=== PATIENT | female | born 1975 | race Caucasian/White ===

== ENCOUNTER 2017-08-29 21:15 | Emergency (ER) | payer SELFPAY ==
[~2017-08-29] VITALS: Ht 165.1 cm; Wt 122.9 kg
[~2017-08-29 21:15] MED LIST: CEFP500T4 PO; CYCL10TA9 PO; FLUO20CA25 PO; HYDR-3870 PO; HYDR-757 PO; LORA0.5T34 PO; NAPR-243 PO; NITR-65 PO; PANT40TA PO; PHEN200T27 PO
--- OUTSIDE RECORDS SUMMARY | 2017-08-29 21:21 | XMS REPORT ---
Author Author GLORIA Flynn Organization [facility] Address [address] [place] [address] Care Team Providers Care Industrial Property Appraiser Name Role Phone GLORIA Flynn Unavailable PROBLEMS Type Condition ICD9-CM Code [id number] Code Onset Dates Condition Status SNOMED Code Problem Gastro-esophageal reflux disease without esophagitis K21.9 Active 800889250 ALLERGIES Substance Reaction Event Type Date Status Amoxicillin Unknown Drug Allergy Oct, Active ENCOUNTERS Encounter Location Date Diagnosis [facility] [address] [id number] [place] [address] Oct, Gastro-esophageal reflux disease without esophagitis K21.9 IMMUNIZATIONS No Known Immunizations SOCIAL HISTORY Never Assessed REASON FOR VISIT Abdominal pain started about 3 hours ago- feels nausea JStrasserRN PLAN OF CARE Activity Details Follow Up prn Reason: VITAL SIGNS Weight 266.4 lbs 2016-10-24 Temperature 98.1 degrees Fahrenheit 2016-10-24 Heart Rate 100 bpm 2016-10-24 Respiratory Rate 24 2016-10-24 Blood pressure systolic 120 mmHg 2016-10-24 Blood pressure diastolic 90 mmHg 2016-10-24 MEDICATIONS Medication Instructions Dosage Frequency Start Date End Date Duration Status Sucralfate 1 GM Orally QID 1 tablet before meals and at bedtime 6h Oct, Nov, 14 days Active Omeprazole 40 MG Orally Once a day 1 capsule 24h Oct, 30 day(s ) Active RESULTS No Results PROCEDURES No Known procedures INSTRUCTIONS MEDICATIONS ADMINISTERED No Known Medications MEDICAL (GENERAL) HISTORY Type Description Date Surgical History tonsillectomy and adenoidectomy Surgical History cholecystectomy
[2017-08-29 21:38] LABS: BILIRUBIN,URINE NEGATIVE (NEGATIVE); CLARITY,URINE CLEAR; COLOR,URINE YELLOW; GLUCOSE, URINE (UA) NEGATIVE (NEGATIVE); KETONES,URINE NEGATIVE (NEGATIVE); LEUKOCYTE ESTERASE ,URINE 3+ (NEGATIVE); NITRITE,URINE NEGATIVE (NEGATIVE); PH,URINE 6 (5-9); PROTEIN,URINE 1+ (NEGATIVE); UROBILINOGEN,URINE NORMAL (NORMAL)
--- NOTE | 2017-08-29 21:39 | ED Back Pain ---
General Chief Complaint: Back Problems Stated Complaint: BACK PAIN Nursing Triage Note: pt presents to er with complaint of low back pain. states she has had it for a week and a half. went to the dr on thursday and was giving a muscle relaxer and prednisone. Nursing Sepsis Screen: No Definite Risk Source of Information: Patient, Family (sister) Exam Limitations: No Limitations History of Present Illness Date Seen by Provider: August 29, 2017 Time Seen by Provider: 21:30 Initial Comments The patient presents to the ER by private conveyance with a chief complaint she is having some low back pain left worse than right radiating from the left side to the right side. She also has some tingling down her left thigh above the knee. She's not having any numbness, loss of control of her bowel or bladder or hesitancy. She does however have a little bit of urinary incontinence when standing up from the couch and she has some pain in her back she says she'll have a small amount. She's had back pain before but never this lasted this long periods of been going on for about a week and a half staying about the same. She had no inciting event, motor vehicle trauma or other trauma. She has not lost or gained any weight significantly for the past several months. She followed up with her primary care provider and he started her on prednisone and some muscle relaxants which were helping a lot so she backed off from 8 ibuprofen a day to 4 ibuprofen a day. These are 200 mg tablets of ibuprofen. She is not on blood thinners nor does she have diabetes. Allergies and Home Medications Allergies Coded Allergies: Amoxicillin (Unverified Allergy, Mild, 07/06/09) Home Medications Cefprozil 500 Mg Tablet, 500 MG PO DAILY, (Reported) Hydrocodone/Acetaminophen 1 Each Tablet, 1-2 EACH PO Q4H PRN for PAIN Prescribed by: ALEKSANDR CORONADO on 02/27/16 1531 Patient Home Medication List Home Medication List Reviewed: Yes Constitutional: No chills, No diaphoresis EENTM: No ear pain, No vision loss Respiratory: No cough, No short of breath Cardiovascular: No chest pain, No edema Gastrointestinal: No abdominal pain, No constipation, No diarrhea, No nausea Genitourinary: No discharge, No dysuria : No Musculoskeletal: see HPI, back pain; No joint pain Past Xnbfpmp-Joihct-Tzmvqm Hx Patient Social History Alcohol Use: Occasionally Uses Recreational Drug Use: No Smoking Status: Former Smoker Type Used: Cigarettes Recent Foreign Travel: No Contact w/Someone Who Travel: No Recent Infectious Disease Expo: No Recent Hopitalizations: No Immunizations Up To Date Tetanus Booster (TDap): Unknown Past Medical History Surgeries: Yes (EYE SURGERY, EAR TUBES X6, knee scope) Gallbladder, Orthopedic Respiratory: No Cardiac: No Neurological: No Gastrointestinal: Yes (DIARRHEA) Musculoskeletal: No Endocrine: No Cancer: No Psychosocial: No Integumentary: No Blood Disorders: No Physical Exam Vital Signs Vital Signs - First Documented 08/29/17 21:22 Temp 98.1 Pulse 114 Resp 20 B/P (MAP) 153/124 (134) Pulse Ox 96 O2 Delivery Room Air Capillary Refill : Less Than 3 Seconds General Appearance: No Apparent Distress, WD/WN, Anxious HEENT: PERRL/EOMI, Pharynx Normal Neck: Full Range of Motion, Normal Inspection, Non Tender, Supple Cardiovascular: Regular Rate, Rhythm, No Edema, Normal Peripheral Pulses Respiratory: Chest Non Tender, Lungs Clear, Normal Breath Sounds, No Accessory Muscle Use, No Respiratory Distress Peripheral Pulses: 2+ Dorsalis Pedis (R), 2+ Left Dors-Pedis (L) Back: Normal Inspection, CVA Tenderness (L), Vertebral Tenderness (lumbar, brandie L5-S1 facet joint on left) Extremity: Normal Capillary Refill, Normal Range of Motion, No Calf Tenderness , No Pedal Edema Neurologic/Psychiatric: Alert, Oriented x3, No Motor/Sensory Deficits, Normal Mood/Affect Skin: Normal Color, Warm/Dry Progress/Results/Core Measures Results/Orders Lab Results Laboratory Tests Test 08/29/17 21:32 Range/Units Urine Color YELLOW Urine Clarity CLEAR Urine pH 6 5-9 Urine Specific Dawn 1.020 1.016-1.022 Urine Protein 1+ H NEGATIVE Urine Glucose (UA) NEGATIVE NEGATIVE Urine Ketones NEGATIVE NEGATIVE Urine Nitrite NEGATIVE NEGATIVE Urine Bilirubin NEGATIVE NEGATIVE Urine Urobilinogen NORMAL NORMAL MG/DL Urine Leukocyte Esterase 3+ H NEGATIVE Urine RBC (Auto) 1+ H NEGATIVE Urine RBC 0-2 /HPF Urine WBC 25-50 H /HPF Urine Squamous Epithelial Cells 5-10 /HPF Urine Crystals NONE /LPF Urine Bacteria FEW H /HPF Urine Casts NONE /LPF Urine Mucus LARGE H /LPF Urine Culture Indicated YES Urine Test NEGATIVE NEGATIVE My Orders Orders - KAITLIN ROMERO Ketorolac Injection (Toradol Injection) (08/29/17 21:45) Methylprednisolone Acetate Inj (Depo-Med (08/29/17 21:45) Bupivacaine 0.5% Injection (Sensorcaine (08/29/17 21:45) Lidocaine 1% Inj 20 Ml (Xylocaine 1% Inj (08/29/17 21:45) Urinalysis (08/29/17 21:33) Hcg,Qualitative Urine (08/29/17 21:40) Urine Culture (08/29/17 21:32) Ceftriaxone Injection (Rocephin Injectio (08/29/17 22:15) Lidocaine 1% Inj 50 Ml (Xylocaine 1% Inj (08/29/17 22:15) Medications Given in ED Current Medications Medications Dose Ordered Sig/Lj Route Start Time Stop Time Status Last Admin Dose Admin Ketorolac Tromethamine 30 mg ONCE ONCE IM 08/29/17 21:45 08/29/17 21:46 DC 08/29/17 21:40 30 MG Vital Signs/I&O 08/29/17 21:22 Temp 98.1 Pulse 114 Resp 20 B/P (MAP) 153/124 (134) Pulse Ox 96 O2 Delivery Room Air Blood Pressure Mean: 134 Progress Progress Note #1: Time: 21:38 Progress Note If urinalysis and urine are unremarkable then we will have her stop the prednisone injected with 40 mg of Depo-Medrol, 5 cc of half percent Marcaine and 5 cc of 1% lidocaine in her L5-S1 facet joint and encourage her to continue using her muscle relaxants. We will discuss and elementary school counselor rice therapy. We'll also elementary school counselor her on appropriate NSAID use and put her on 2 capsules of Naprosyn twice daily for the next 2 weeks. Imaging is not indicated that she has not sufficient age to worry about metastatic disease yet nor has she been treated with adequate NSAIDs. Progress Note #2: Time: 22:16 Progress Note Patient has urinary tract infection and she may very well also have some back pain and that's true and unrelated to her urinary tract infection but we will be more appropriate to stop the steroids and treat her with antibiotics. Concern with her CVA tenderness that she may also be developing pyelonephritis. We'll put her on strong dose antibiotics. We discussed doing more labs but is not a change the outcome that she stop antibiotics and go home so she is agreed to just take the antibiotics and follow-up with Dr. Gonzalez or return here as needed. Departure Impression Primary Impression: Lumbago of lumbar region with sciatica Additional Impression: UTI (urinary tract infection) Qualified Codes: N30.00 - Acute cystitis without hematuria Disposition: HOME, SELF-CARE Condition: Stable Departure-Patient Inst. Decision time for Depature: 22:17 Referrals: ROB GONZALEZ MD (PCP/Family) Primary Care Physician Patient Instructions: Acute Cystitis (DC) Add. Discharge Instructions: Get some rest, heating pads and continue using the ibuprofen 800 mg every 8 hours or Naprosyn 2 capsules twice a day in addition to Tylenol 1000 mg every 8 hours. You can use Pyridium, AZO for the next couple days to see if that helps with some of the urinary pain symptoms. hook up the antibiotics and start taking them tomorrow one capsule twice a day to completion. Expect results within the first 3-4 days. Make appointment with Dr. Gonzalez to be seen in 2-4 weeks for reevaluation of your back pain persists. If you developed fevers that the tylenol and motrin or nausea vomiting or other worrisome symptoms then return to care sooner. All discharge instructions reviewed with patient and/or family. Voiced understanding. Scripts Cephalexin (Keflex) 500 Mg Capsule 500 MG PO BID for 9 Days, #18 CAP 0 Refills Prov: KAITLIN ROMERO 08/29/17 Work/School Note: Work Release Form Date Seen in the Emergency Department: August 29, 2017 Return to Work: August 31, 2017 Restrictions: No Restrictions Copy Copies To 1: ROB GONZALEZ MD, TITUS J August 29, 2017 21:39
[2017-08-29] MEDS: KETOROLAC 30 MG/ML VIAL IM ONE (21:40)
[2017-08-29] MEDS ORDERED: LIDOCAINE 1% INJ 20 ML 20 ML VIAL INJ ONE (21:45)
[2017-08-29] MEDS ORDERED: methylPREDNISolone 40 MG/ML (DEPO MEDROL) VIAL IA ONE (21:45)
[2017-08-29] MEDS ORDERED: BUPIVACAINE 0.5% 30 ML (SENSORCAINE) VIAL INJ ONE (21:45)
[2017-08-29 21:48] LABS: RBC,URINE 0-2 /HPF
[2017-08-29 21:49] LABS: BACTERIA,URINE FEW /HPF; WBC,URINE 25-50 /HPF
[2017-08-29] MEDS ORDERED: CEPH-507 PO (22:19)
[2017-08-29] MEDS: cefTRIAXone 1 GM (ROCEPHIN) VIAL IM ONE (22:20)
[2017-08-29] MEDS: LIDOCAINE 1% INJ 50 ML (XYLOCAINE) VIAL IJ ONE (22:28)
[2017-08-29 22:40] VITALS: BP 144/98
== END 2017-08-29 22:40 | disposition home or self-care (01) ==
LOC: EDUNIT# 21:15 → ER 21:16
DX: M54.42 Lumbago with sciatica, left side (principal); N39.0 Urinary tract infection, site not specified; Z98.890 Other specified postprocedural states; Z79.52 Long term (current) use of systemic steroids; Z88.1 Allergy status to other antibiotic agents
CPT/HCPCS: 81000; 84703; 87088; 96372; 99284

== ENCOUNTER 2018-07-22 05:42 | Outpatient (CLI) | payer OTHER ==
[~2018-07-22] VITALS: Ht 165.1 cm; Wt 122.0 kg
[~2018-07-22 05:42] MED LIST changes: +CEPH-507 PO; +HYDR-4226 PO; -HYDR-757 PO
== END 2018-07-22 14:18 | disposition home or self-care (01) ==
LOC: PREOP 05:42
PROVIDERS: ATTEND Surgery
DX: Z01.818 Encounter for other preprocedural examination (principal)

== ENCOUNTER 2018-07-27 08:23 | Day surgery (SDC) | payer OTHER ==
[~2018-07-27] VITALS: Ht 165.1 cm; Wt 122.0 kg
[2018-07-27 08:30] VITALS: BP 159/100
[2018-07-27] MEDS ORDERED: LACTATED RINGERS 1,000 ML IV STA (08:30)
[2018-07-27] MEDS ORDERED: LACTATED RINGERS 1,000 ML IV ONE (08:33)
[2018-07-27] MEDS ORDERED: PROPOFOL INJECTION 50 ML IV ONE (08:46)
[2018-07-27] MEDS ORDERED: MIDAZOLAM 2 MG/2 ML (VERSED) VIAL ONE (08:47)
--- NOTE | 2018-07-27 08:49 | Progress Note-Pre Operative ---
Pre-Operative Progress Note H&P Reviewed The H&P was reviewed, patient examined and no changes noted. Date Seen by Provider: Jul 27, 2018 Time Seen by Provider: 08:49 Date H&P Reviewed: Jul 27, 2018 Time H&P Reviewed: 08:49 Pre-Operative Diagnosis: history of polyps HIMA ROCA DO Jul 27, 2018 08:49
[2018-07-27 09:25] VITALS: BP 143/71
--- NOTE | 2018-07-27 09:26 | Progress Note-Post Operative ---
Post-Operative Progess Note Surgeon (s)/Tube Washer (s) Surgeon HIMA ROCA DO Tube Washer: na Pre-Operative Diagnosis history of polyps Post-Operative Diagnosis minimal diverticulosis Procedure & Operative Findings Date of Procedure 07/27/18 Procedure Performed/Findings colonoscopy Anesthesia Type per motion graphics designer Estimated Blood Loss Estimated blood loss (mL): none Specimens/Packing Specimens Removed none HIMA ROCA DO Jul 27, 2018 09:26
--- NOTE | 2018-07-27 09:27 | Discharge Inst-Simple/Standard ---
Discharge Inst-Standard Patient Instructions/Follow Up Plan of Care/Instructions/FU: 2 weeks Contreras Activity as Tolerated: Yes Discharge Diet: Regular Diet (high fiber) HIMA ROCA DO Jul 27, 2018 09:27
[2018-07-27 09:55] VITALS: BP 154/96
[2018-07-27 10:00] VITALS: BP 154/96
--- NOTE | 2018-07-27 13:52 | Anesthesia-General Post-Op ---
MAC Patient Condition Mental Status/LOC: Same as Preop Cardiovascular: Satisfactory Nausea/Vomiting: Absent Respiratory: Satisfactory Pain: Controlled Complications: Absent Post Op Complications Complications None Follow Up Care/Instructions Patient Instructions None needed. Anesthesiology Discharge Order Discharge Order Patient was seen this morning after the procedure and she was doing well, no complaints, stable vital signs, no apparent adverse anesthesia problems. TOMMY YOUSIF DO Jul 27, 2018 13:52
--- NOTE | 2018-07-27 13:52 | OPERATIVE REPORT ---
DATE OF SERVICE: 07/27/2018 PREOPERATIVE DIAGNOSIS: History of colon polyps. POSTOPERATIVE DIAGNOSIS: Diverticulosis. PROCEDURE: Colonoscopy. SURGEON: Hima Chairez DO ANESTHESIA: Per CONE PICKER. ESTIMATED BLOOD LOSS: None. COMPLICATIONS: None. INDICATIONS: The patient is a 43-year-old female with history of colon polyps. She understands risks and benefits of procedure and wished to proceed with procedure. Consent was signed on the chart. DESCRIPTION OF PROCEDURE: The patient was taken to the endoscopy suite, placed in left lower recumbent position. Timeout was performed. Digital rectal exam was performed. There were no palpable polyps, masses or ulcerations. Scope was inserted in the rectum and advanced all the way to the cecum with minimal difficulty. Prep was adequate. Scope was then slowly retracted back. There were no polyps, masses or ulcerations within the cecum, ascending, transverse, descending and sigmoid colon. Throughout the colon, minimal amount of diverticulosis was present. Once in the rectum, scope was retroflexed noting no other pathology. Scope was returned to its normal position, slowly withdrawn until completely removed. The patient tolerated the procedure well without any complications. She was taken to recovery room in stable condition. RECOMMENDATIONS: The patient will need a repeat colonoscopy in 5 years. If she has any change in condition at that time, she should be reevaluated. Job ID: [id number] DocumentID: [id number] Dictated Date: 07/27/2018 09:23:57 Shoe Shanker Date: 07/27/2018 13:51:38 Dictated By: HIMA CHAIREZ DO
== END 2018-07-27 10:05 | disposition home or self-care (01) ==
LOC: SDC 08:23
PROVIDERS: ATTEND Surgery
DX: Z12.11 Encounter for screening for malignant neoplasm of colon (principal); K57.30 Diverticulosis of large intestine without perforation or abscess without bleeding; Z86.010 Personal history of colon polyps; F32.9 Major depressive disorder, single episode, unspecified; F17.210 Nicotine dependence, cigarettes, uncomplicated; E66.01 Morbid (severe) obesity due to excess calories; Z68.41 Body mass index [BMI] 40.0-44.9, adult; Z79.899 Other long term (current) drug therapy
CPT/HCPCS: 84703

== ENCOUNTER 2018-08-16 06:00 | Outpatient (CLI) | payer OTHER ==
[~2018-08-16] VITALS: Ht 165.1 cm; Wt 122.0 kg
== END 2018-08-16 14:13 | disposition home or self-care (01) ==
LOC: PREOP 06:00
PROVIDERS: ATTEND Surgery
DX: Z01.818 Encounter for other preprocedural examination (principal)

== ENCOUNTER 2018-08-19 07:13 | Day surgery (SDC) | payer OTHER ==
[2018-08-19] VITALS (15 sets, daily range): BP systolic 102–143; BP diastolic 59–113
[~2018-08-19] VITALS: Ht 165.1 cm; Wt 122.0 kg
[2018-08-19] MEDS ORDERED: CLINDAMYCIN 600 MG/50 ML IVPB 50 ML IV ONE (07:15)
[2018-08-19] MEDS ORDERED: BUP/EPI 0.5% 1:200,000 (SENSORCAINE) 30 ML VIAL ONE (07:37)
[2018-08-19] MEDS ORDERED: LIDOCAINE 1% INJ 20 ML 20 ML VIAL ONE (07:37)
[2018-08-19] MEDS ORDERED: CATHETER FLUSH 10 ML SYR IV PRN (07:45)
[2018-08-19] MEDS ORDERED: fentaNYL INJECTION 100 MCG/2 ML AMP ONE (07:54)
[2018-08-19] MEDS ORDERED: ONDANSETRON 4 MG/2 ML (SDV) Z0FRAN ONE (07:54)
[2018-08-19] MEDS ORDERED: LIDOCAINE PF 2% 5 ML (XYLOCAINE) VIAL ONE (07:54)
[2018-08-19] MEDS ORDERED: MIDAZOLAM 2 MG/2 ML (VERSED) VIAL ONE (07:54)
[2018-08-19] MEDS ORDERED: proPOfol 200 MG/20 ML (DIPRIVAN) VIAL IV ONE (07:54)
[2018-08-19] MEDS ORDERED: DEXAMETHASONE 10 MG/ML (DECADRON) 1 ML VIAL ONE (07:54)
[2018-08-19] MEDS ORDERED: ROCURONIUM 10 MG/ML 5 ML SYRINGE IV ONE (07:55)
[2018-08-19] MEDS ORDERED: SEVOFLURANE (ULTANE) 15 ML INHAL SOLN ONE ×3 (07:55→10:04)
--- NOTE | 2018-08-19 08:08 | Progress Note-Pre Operative ---
Pre-Operative Progress Note H&P Reviewed The H&P was reviewed, patient examined and no changes noted. Date Seen by Provider: August 19, 2018 Time Seen by Provider: 08:07 Date H&P Reviewed: August 19, 2018 Time H&P Reviewed: 08:08 Pre-Operative Diagnosis: incisional hernia HIMA ROCA DO August 19, 2018 08:08
[2018-08-19 08:24] LABS: BASOPHILS % (AUTO) 1 % (0-10); EOSINOPHILS # (AUTO) 0.2 10^3/uL (0.0-0.3); EOSINOPHILS % (AUTO) 2 % (0-10); HEMATOCRIT 42 % (35-52); HEMOGLOBIN 14.8 G/DL (11.5-16.0); LYMPHOCYTES # (AUTO) 2.2 X 10^3 (1.0-4.0); LYMPHOCYTES % (AUTO) 36 % (12-44); MEAN CORPUSCULAR HEMOGLOBIN 31 PG (25-34); MEAN CORPUSCULAR HGB CONC 35 G/DL (32-36); MEAN CORPUSCULAR VOLUME 88 FL (80-99); MEAN PLATELET VOLUME 10.4 FL (7.4-10.4); MONOCYTES # (AUTO) 0.6 X 10^3 (0.0-1.0); MONOCYTES % (AUTO) 10 % (0-12); NEUTROPHILS # (AUTO) 3.2 X 10^3 (1.8-7.8); NEUTROPHILS % (AUTO) 51 % (42-75); PLATELET COUNT 213 10^3/uL (130-400); RED CELL DISTRIBUTION WIDTH 12.2 % (10.0-14.5); WHITE BLOOD COUNT 6.3 10^3/uL (4.3-11.0)
[2018-08-19] MEDS: LACTATED RINGERS 1,000 ML IV PRN ×2 (08:45→10:13)
[2018-08-19] MEDS ORDERED: GLYCOPYRROLATE 0.2 MG/ML (ROBINUL) 2 ML VIAL ONE (10:16)
[2018-08-19] MEDS ORDERED: NEOSTIGMINE 1 MG/ML 5 ML SYRINGE ONE (10:16)
--- NOTE | 2018-08-19 10:24 | Progress Note-Post Operative ---
Post-Operative Progess Note Surgeon (s)/Manager Van (s) Surgeon HIMA ROCA DO Manager Van: Dr. Stoner Pre-Operative Diagnosis INCISIONAL HERNIA Post-Operative Diagnosis incarcerated incisional hernia repair Procedure & Operative Findings Date of Procedure 08/19/18 Procedure Performed/Findings lap incarcerated incisional hernia repair. Anesthesia Type gen Estimated Blood Loss Estimated blood loss (mL): min Specimens/Packing Specimens Removed na HIMA ROCA DO August 19, 2018 10:24
[2018-08-19] MEDS ORDERED: DOCU-143 PO (10:25)
[2018-08-19] MEDS ORDERED: ACHD5005 PO (10:25)
--- NOTE | 2018-08-19 10:32 | Discharge Inst-Simple/Standard ---
Discharge Inst-Standard Discharge Medications New, Converted or Re-Newed RX: RX on Chart Patient Instructions/Follow Up Plan of Care/Instructions/FU: 2 weeks Chairez Activity as Tolerated: No Discharge Diet: Regular Diet Other Inst to Patient Follow up Appt: Make appointment for 2 weeks. Instructions: No lifting greater than 10 pounds. No strenuous activity. May shower in 24 hours, no tub bath or soaking. Use incentive spirometer at home as directed. No Smoking Skin/Wound Care: You have special glue over incisions it will fall off on its own. Symptoms to Report: Appetite Changes, Extremity Discoloration, Numbness/Tingling, Swelling Increased , Bleeding Excessive, Eyesight Changes, Pain Increased, Urine Color Change, Constipation(Persistent), Fever over 101 degree F, Pain/Pressure in chest, Urinating Difficulty, Cough Up/Vomit Blood, Heart Beat Irreg/Pounding, Pain/ Pressure in jaw, Vaginal Bleeding Increase, Cramps in feet or legs, Lightheadedness, Pain/Pressure in shoulder, Diarrhea(Persistent), Memory Changes Suddenly, Questions/Concerns, Weight gain consecutive days, Dizziness/ Fainting, Nausea/Vomiting, Shortness of Breath, Weight gain over 2 pounds If questions or concerns contact your physician Or seek help at emergency department. HIMA CHAIREZ DO August 19, 2018 10:31
[2018-08-19] MEDS ORDERED: morphine INJ 10 MG/ML 1ML (SYR OR VIAL) ONE (10:40)
[2018-08-19] MEDS ORDERED: HYDROmorphone 2 MG/ML VIAL (DILAUDID) IV ONE (10:45)
[2018-08-19] MEDS ORDERED: ONDANSETRON 4 MG/2 ML (SDV) Z0FRAN IVP PRN (10:45)
[2018-08-19] MEDS ORDERED: morphine INJ 10 MG/ML 1ML (SYR OR VIAL) IVP ONE (10:45)
[2018-08-19] MEDS ORDERED: HYDROcodone/APAP 5 MG/325 MG (LORTAB) TAB PO ONE (12:15)
[2018-08-19] MEDS ORDERED: HYDROcodone/APAP 5 MG/325 MG (LORTAB) TAB ONE (12:19)
[2018-08-19] MEDS ORDERED: ONDANSETRON 4 MG/2 ML (SDV) Z0FRAN IVP ONE (12:45)
--- NOTE | 2018-08-19 13:50 | Anesthesia-General Post-Op ---
General Patient Condition Mental Status/LOC: Same as Preop Cardiovascular: Satisfactory Nausea/Vomiting: Absent Respiratory: Satisfactory Pain: Controlled Complications: Absent Post Op Complications Complications None Follow Up Care/Instructions Patient Instructions None needed. Anesthesia/Patient Condition Patient Condition Patient is doing well, no complaints, stable vital signs, no apparent adverse anesthesia problems. No complications reported per nursing. D/C home per [facility] Criteria: Yes WILLIAM MALHOTRA CRNA August 19, 2018 13:50
--- NOTE | 2018-08-19 20:54 | OPERATIVE REPORT ---
DATE OF SERVICE: 08/19/2018 PREOPERATIVE DIAGNOSIS: Incisional hernia. POSTOPERATIVE DIAGNOSIS: Incarcerated incisional hernia. PROCEDURE: Laparoscopic incarcerated incisional hernia using 4.5-inch Echo Ventralight mesh. SURGEON: Hima Chairez DO THRESHER BROOMCORN: Dr. Stoner, assisted in retraction, dissection and closure. ESTIMATED BLOOD LOSS: Minimal. COMPLICATIONS: None. INDICATIONS: The patient is a 43-year-old female who has incisional hernia at the umbilicus. She understands risks and benefits of procedure and wished to proceed with procedure. Consent was signed in the chart. PROCEDURE: The patient was taken to the operating suite. She was prepped and draped in sterile fashion. Timeout was performed. Alec technique was used to enter the abdomen in left upper quadrant, incarcerated fat of the omentum through the incisional hernia present. Blunt dissection along with a LigaSure dissection was used to remove the incarcerated fat. Once removed, the defect was closed in a [id number] fashion with 0 Vicryl and a Nicholas-Sree. An Echo Ventralight 4.5 inch mesh was then inserted into the abdomen and grasped with a Nicholas-Sree through a stab incision at the hernia defect. A SecureStrap Tacker was used to go circumferentially around the mesh to secure it in place with good overlap present. The balloon was then removed and inner crown was created as well. The Nicholas-Sree was then used to close the 12 mm fascial defect of the left upper quadrant with an 0 Vicryl. The anterior fascia was also closed with 0 Vicryl in a [id number] fashion. All the trocars were removed. After the abdomen was then desufflated the skin was then closed using 4-0 Monocryl in a subcuticular fashion. The abdomen was then washed and dried and Skin Affix was placed over the incisions. The patient tolerated procedure well without any complications. She was taken to recovery room in stable condition. Job ID: [id number] DocumentID: [id number] Dictated Date: 08/19/2018 16:31:35 Giver Date: 08/19/2018 20:53:50 Dictated By: HIMA CHAIREZ DO
== END 2018-08-19 15:10 | disposition home or self-care (01) ==
LOC: SDC 07:13
PROVIDERS: ATTEND Surgery
DX: K43.0 Incisional hernia with obstruction, without gangrene (principal); K21.9 Gastro-esophageal reflux disease without esophagitis; E66.01 Morbid (severe) obesity due to excess calories; Z68.41 Body mass index [BMI] 40.0-44.9, adult; Z87.891 Personal history of nicotine dependence
CPT/HCPCS: 36415; 84703; 85025; 87081; 94664

== ENCOUNTER 2019-05-12 21:46 | Emergency (ER) | payer OTHER ==
[~2019-05-12] VITALS: Ht 165 cm; Wt 125.0 kg
[~2019-05-12 21:46] MED LIST changes: +ACHD5005 PO; +DOCU-143 PO
[2019-05-12 22:11] LABS: BILIRUBIN,URINE NEGATIVE (NEGATIVE); CLARITY,URINE CLEAR; COLOR,URINE YELLOW; GLUCOSE, URINE (UA) NEGATIVE (NEGATIVE); KETONES,URINE TRACE (NEGATIVE); LEUKOCYTE ESTERASE ,URINE NEGATIVE (NEGATIVE); NITRITE,URINE NEGATIVE (NEGATIVE); PH,URINE 5.5 (5-9); PROTEIN,URINE NEGATIVE (NEGATIVE)
[2019-05-12 22:36] LABS: BACTERIA,URINE TRACE /HPF
[2019-05-12] MEDS ORDERED: NS IV 1000 ML 1,000 ML IV SCH (22:36)
[2019-05-12 22:37] LABS: CALCIUM OXALATE CRYSTALS,UR FEW /LPF
[2019-05-12 22:38] LABS: HYALINE CASTS, URINE 0-2 /LPF
[2019-05-12] MEDS ORDERED: RT-ALBUTEROL/IPRATROPIUM 3 ML (DUONEB) VIAL INH ONE (22:45)
[2019-05-12] MEDS ORDERED: KETOROLAC 30 MG/ML VIAL IVP ONE (22:45)
[2019-05-12 22:49] LABS: BASOPHILS # (AUTO) 0.1 10^3/uL (0.0-0.1); BASOPHILS % (AUTO) 1 % (0-10); EOSINOPHILS # (AUTO) 0.3 10^3/uL (0.0-0.3); EOSINOPHILS % (AUTO) 3 % (0-10); HEMATOCRIT 44 % (35-52); HEMOGLOBIN 15.6 G/DL (11.5-16.0); LYMPHOCYTES # (AUTO) 2.9 X 10^3 (1.0-4.0); LYMPHOCYTES % (AUTO) 33 % (12-44); MEAN CORPUSCULAR HEMOGLOBIN 31 PG (25-34); MEAN CORPUSCULAR HGB CONC 35 G/DL (32-36); MEAN CORPUSCULAR VOLUME 87 FL (80-99); MEAN PLATELET VOLUME 10.6 FL (7.4-10.4); MONOCYTES # (AUTO) 0.9 X 10^3 (0.0-1.0); MONOCYTES % (AUTO) 11 % (0-12); NEUTROPHILS # (AUTO) 4.5 X 10^3 (1.8-7.8); NEUTROPHILS % (AUTO) 52 % (42-75); PLATELET COUNT 235 10^3/uL (130-400); RED CELL DISTRIBUTION WIDTH 12.5 % (10.0-14.5); WHITE BLOOD COUNT 8.7 10^3/uL (4.3-11.0)
--- NOTE | 2019-05-12 22:49 | ED Back Pain ---
General Chief Complaint: Back Problems Stated Complaint: FLANK PAIN Source of Information: Patient Exam Limitations: No Limitations History of Present Illness Date Seen by Provider: May 12, 2019 Time Seen by Provider: 22:14 Initial Comments The patient arrives by private conveyance from home with chief complaint of 3 weeks of left back and flank pain radiating around the lower costal margin to her front. There is no rash itching or pustules. She's had no fevers or chills. She has had an occasional nonproductive cough however but no shortness of breath. Her pain is worse on deep expiration. She did have bronchitis a few weeks ago as well as there was influenza in her family members. She quit smoking years ago. She has no heart history, hypertension, hypercholesterolemia, nausea, sweats, diabetes. She does not take medications. She gets only a minor relief from Tylenol or ibuprofen so she does not routinely use it because she says she can stand the pain without it. Tonight however when she was walking she started feeling some popping sensation in her left flank and back. 1 week after the back pain started she went to Dr. Gonzalez and he did a urine dipstick which was negative but he put her on some antibiotics and asked her to follow up. She has pretty much completed the ciprofloxacin with no relief. No history of kidney stones, hematuria or dysuria. Allergies and Home Medications Allergies Coded Allergies: amoxicillin (Unverified Allergy, Mild, 07/06/09) Home Medications Benzonatate 100 Mg Capsule, 100 MG PO Q6H PRN for COUGH Prescribed by: KAITLIN ROMERO on 05/13/19 0035 Docusate Sodium 100 Mg Capsule, 100 MG PO BID Prescribed by: HIMA ROCA on 08/19/18 1025 Hydrocodone Bit/Acetaminophen 1 Tab Tab, 1-2 TAB PO Q6H PRN for PAIN-MODERATE Prescribed by: HIMA ROCA on 08/19/18 1025 Patient Home Medication List Home Medication List Reviewed: Yes Review of Systems Constitutional: No chills, No diaphoresis EENTM: No ear discharge, No ear pain Respiratory: cough; No phlegm, No short of breath, No wheezing Cardiovascular: see HPI; No chest pain, No edema Gastrointestinal: No abdominal pain, No constipation, No diarrhea, No nausea Genitourinary: No discharge, No dysuria Musculoskeletal: see HPI, back pain; No muscle pain, No muscle stiffness Past Zwryyey-Zqrztr-Kpjwzx Hx Patient Social History Alcohol Use: Denies Use Recreational Drug Use: No Smoking Status: Former Smoker Type Used: Cigarettes Former Smoker, Quit: August 17, 2015 Recent Foreign Travel: No Contact w/Someone Who Travel: No Recent Hopitalizations: No Immunizations Up To Date Tetanus Booster (TDap): Unknown Seasonal Allergies Seasonal Allergies: No Past Medical History Surgeries: Yes (EYE SURGERY x2, EAR TUBES X6, knee scope) Adenoidectomy, Gallbladder, Orthopedic, Tonsillectomy Respiratory: No Cardiac: No Neurological: No Genitourinary: No Gastrointestinal: Yes Abdominal Hernia, Polyps, Irritable Bowel Musculoskeletal: No Endocrine: No HEENT: No Cancer: No Psychosocial: No Integumentary: No Blood Disorders: No Physical Exam Vital Signs Vital Signs - First Documented 05/12/19 05/12/19 22:00 23:21 Temp 37.2 Pulse 122 Resp 18 B/P (MAP) 134/110 (118) Pulse Ox 99 O2 Delivery Room Air Capillary Refill : Height, Weight, BMI Height: 5'5.00" Weight: 269lbs. 0.0oz. 122.992815vo; 44.8 BMI Method:Stated General Appearance: WD/WN, Mild Distress HEENT: PERRL/EOMI, TMs Normal, Normal ENT Inspection, Pharynx Normal, Moist Mucous Membranes Neck: Full Range of Motion, Normal Inspection Cardiovascular: Regular Rate, Rhythm, No Edema, Normal Peripheral Pulses, Tach ycardia Respiratory: Lungs Clear, No Accessory Muscle Use, No Respiratory Distress, Decreased Breath Sounds Gastrointestinal: Normal Bowel Sounds, Non Tender, Soft Back: Normal Inspection, No CVA Tenderness, Vertebral Tenderness (and left inferior costal margin reproducible to direct palpation or deep inspiration) Extremity: Normal Capillary Refill, No Pedal Edema Neurologic/Psychiatric: Alert, Oriented x3 Skin: Normal Color, Warm/Dry Progress/Results/Core Measures Results/Orders Lab Results Laboratory Tests Test 05/12/19 22:05 05/12/19 22:40 Range/Units Urine Color YELLOW Urine Clarity CLEAR Urine pH 5.5 5-9 Urine Specific [place] >=1.030 1.016-1.022 Urine Protein NEGATIVE NEGATIVE Urine Glucose (UA) NEGATIVE NEGATIVE Urine Ketones TRACE H NEGATIVE Urine Nitrite NEGATIVE NEGATIVE Urine Bilirubin NEGATIVE NEGATIVE Urine Urobilinogen 0.2 < = 1.0 MG/DL Urine Leukocyte Esterase NEGATIVE NEGATIVE Urine RBC (Auto) NEGATIVE NEGATIVE Urine RBC NONE /HPF Urine WBC 2-5 /HPF Urine Crystals PRESENT H /LPF Urine Calcium Oxalate Crystals FEW H /LPF Urine Bacteria TRACE /HPF Urine Casts PRESENT /LPF Urine Hyaline Casts 0-2 H /LPF Urine Mucus SMALL H /LPF Urine Culture Indicated NO White Blood Count 8.7 4.3-11.0 10^3/uL Red Blood Count 5.08 4.35-5.85 10^6/uL Hemoglobin 15.6 11.5-16.0 G/DL Hematocrit 44 35-52 % Mean Corpuscular Volume 87 80-99 FL Mean Corpuscular Hemoglobin 31 25-34 PG Mean Corpuscular Hemoglobin Concent 35 32-36 G/DL Red Cell Distribution Width 12.5 10.0-14.5 % Platelet Count 235 130-400 10^3/uL Mean Platelet Volume 10.6 H 7.4-10.4 FL Neutrophils (%) (Auto) 52 42-75 % Lymphocytes (%) (Auto) 33 12-44 % Monocytes (%) (Auto) 11 0-12 % Eosinophils (%) (Auto) 3 0-10 % Basophils (%) (Auto) 1 0-10 % Neutrophils # (Auto) 4.5 1.8-7.8 X 10^3 Lymphocytes # (Auto) 2.9 1.0-4.0 X 10^3 Monocytes # (Auto) 0.9 0.0-1.0 X 10^3 Eosinophils # (Auto) 0.3 0.0-0.3 10^3/uL Basophils # (Auto) 0.1 0.0-0.1 10^3/uL Sodium Level 139 135-145 MMOL/L Potassium Level 3.6 3.6-5.0 MMOL/L Chloride Level 107 98-107 MMOL/L Carbon Dioxide Level 20 L 21-32 MMOL/L Anion Gap 12 5-14 MMOL/L Blood Urea Nitrogen 13 7-18 MG/DL Creatinine 0.83 0.60-1.30 MG/DL Estimat Glomerular Filtration Rate > 60 BUN/Creatinine Ratio 16 Glucose Level 143 H 70-105 MG/DL Calcium Level 9.4 8.5-10.1 MG/DL Corrected Calcium 9.5 8.5-10.1 MG/DL Total Bilirubin 1.7 H 0.1-1.0 MG/DL Aspartate Amino Transf (AST/SGOT) 38 H 5-34 U/L Alanine Aminotransferase (ALT/SGPT) 57 H 0-55 U/L Alkaline Phosphatase 89 40-136 U/L Total Protein 6.7 6.4-8.2 GM/DL Albumin 3.9 3.2-4.5 GM/DL My Orders Orders - KAITLIN ROMERO Ua Culture If Indicated (05/12/19 21:53) Cbc With Automated Diff (05/12/19 22:36) Comprehensive Metabolic Panel (05/12/19 22:36) Chest Pa/Lat (2 View) (05/12/19 22:36) Ed Iv/Invasive Line Start (05/12/19 22:36) Ns Iv 1000 Ml (Sodium Chloride 0.9%) (05/12/19 22:36) Ketorolac Injection (Toradol Injection) (05/12/19 22:45) Albuterol/Ipra Inhalation Soln (Duoneb I (05/12/19 22:45) Svn Small Volume Nebulizer (05/12/19 22:36) Medications Given in ED Current Medications Medications Dose Ordered Sig/Lj Route Start Time Stop Time Status Last Admin Dose Admin Albuterol/ Ipratropium 3 ml ONCE ONCE INH 05/12/19 22:45 05/12/19 22:46 DC 05/12/19 23:20 3 ML Ketorolac Tromethamine 30 mg ONCE ONCE IVP 05/12/19 22:45 05/12/19 22:46 DC 05/12/19 23:04 30 MG Vital Signs/I&O 05/12/19 05/12/19 05/13/19 22:00 23:21 01:30 Temp 37.2 37.2 Pulse 122 100 Resp 18 18 B/P (MAP) 134/110 (118) 144/86 (118) Pulse Ox 99 98 O2 Delivery Room Air Room Air Room Air 05/13/19 00:00 Intake Total 1000 ml Balance 1000 ml Progress Progress Note : Time: 22:48 Progress Note No evidence of shingles. The pain is reproducible to direct palpation and has some popping sensation which makes it more likely musculoskeletal. We'll obtain a 2 view chest x-ray to make sure there is no pathologic fractures, pneumonia or bronchitis. We'll give her breathing treatment has rhonchus breath can also be painful. Pleurisy is another possibility. We'll give her some Toradol for her pain check urinalysis and labs. Because she is tachycardic we'll give her some fluids. Unless she has a white count, she is not septic. Diagnostic Imaging Diagonstic Imaging: Xray Plain Films/CT/US/NM/MRI: chest (2v) Comments No acute cardiopulmonary process noted. No acute osseous abnormalities. Reviewed: Reviewed by Me Departure Impression Primary Impression: Costochondritis, acute Disposition: HOME, SELF-CARE Condition: Stable Departure-Patient Inst. Decision time for Depature: 00:33 Referrals: ROB GONZALEZ MD (PCP/Family) Primary Care Physician Patient Instructions: Costochondritis (DC) Add. Discharge Instructions: Naproxen 500 mg twice a day for the next 2 weeks. Follow-up with primary care. Topical creams such as icy hot or Biofreeze. Heating pads. You can also use humidifiers and vapor rubs to help with any congestion or cough. If you have coughing fits which increases your pain then you may use Tessalon Perles 1 capsule every 6 hours as needed. All discharge instructions reviewed with patient and/or family. Voiced understanding. Scripts Benzonatate (Tessalon Perle) 100 Mg Capsule 100 MG PO Q6H PRN for COUGH, #30 CAP 0 Refills Prov: KAITLIN ROMERO 05/13/19 KAITLIN ROMERO May 12, 2019 22:48
[2019-05-12 23:09] LABS: ALANINE AMINOTRANSFERASE 57 U/L (0-55); ALBUMIN 3.9 GM/DL (3.2-4.5); ALKALINE PHOSPHATASE 89 U/L (40-136); BILIRUBIN,TOTAL 1.7 MG/DL (0.1-1.0); BUN/CREATININE RATIO 16; CALCIUM 9.4 MG/DL (8.5-10.1); CARBON DIOXIDE 20 MMOL/L (21-32); CHLORIDE 107 MMOL/L (98-107); CREATININE SERUM 0.83 MG/DL (0.60-1.30); GFR ESTIMATED > 60; GLUCOSE 143 MG/DL (70-105); POTASSIUM 3.6 MMOL/L (3.6-5.0); SODIUM 139 MMOL/L (135-145); TOTAL PROTEIN 6.7 GM/DL (6.4-8.2)
[2019-05-13] MEDS ORDERED: BENZ-13 PO (00:35)
[2019-05-13 01:30] VITALS: BP 144/86
--- NOTE | 2019-05-13 07:16 | Diagnostic Imaging Report ---
EXAM: CHEST PA/LAT (2 VIEW) INDICATION: Back pain. COMPARISON: 02/20/2010. FINDINGS: Normal heart size and pulmonary vascularity. No dense consolidation, pleural effusion or pneumothorax. No acute osseous findings. No significant change. IMPRESSION: No acute cardiopulmonary findings. Dictated by: Dictated on workstation # [id number]
== END 2019-05-13 01:30 | disposition home or self-care (01) ==
LOC: EDUNIT# 21:46 → ER 21:48
DX: M94.0 Chondrocostal junction syndrome [Tietze] (principal); Z88.0 Allergy status to penicillin; Z87.891 Personal history of nicotine dependence
CPT/HCPCS: 36415; 71046; 80053; 81000; 84703; 85025; 94640; 96361; 96374

== ENCOUNTER 2019-08-22 11:35 | Emergency (ER) | payer OTHER ==
[~2019-08-22] VITALS: Ht 165.1 cm; Wt 122.7 kg
[~2019-08-22 11:35] MED LIST changes: +BENZ-13 PO
[2019-08-22] MEDS ORDERED: ASPIRIN 81 MG CHEW (CHILDREN'S ASA) PO ONE (11:45)
--- NOTE | 2019-08-22 11:55 | ED Chest Pain ---
General Stated Complaint: CHEST PAIN History of Present Illness Date Seen by Provider: August 22, 2019 Time Seen by Provider: 11:35 Initial Comments 44 year old female presents with left sided chest pain, present intermittently for the last week. 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 No history of CAD, Diabetes or lung disease, does not follow with a waste hand. No associated nauseas/vomiting, SOA, or diaphoresis. Was able to sleep last night. Nervous about COVID-19, no known exposure or increased risk but works at [employer] and [employer] young family members, concerned she could give it to someone. Pain began today at 0930 and has been continuous. She rates it as /10. No history of mental health problems. 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 NTG SL SCHOOL YEAR NANNY: No Associated Symptoms: denies symptoms Allergies and Home Medications Allergies Coded Allergies: amoxicillin (Unverified Allergy, Mild, 07/06/09) Home Medications Benzonatate 100 Mg Capsule, 100 MG PO Q6H PRN for COUGH Prescribed by: KAITLIN RIVERA on 05/13/19 0035 Docusate Sodium 100 Mg Capsule, 100 MG PO BID Prescribed by: HIMA ROCA on 08/19/18 1025 Hydrocodone Bit/Acetaminophen 1 Tab Tab, 1-2 TAB PO Q6H PRN for PAIN-MODERATE Prescribed by: HIMA ROCA on 08/19/18 1025 Hydroxyzine HCl 25 Mg Tablet, 25 MG PO Q8H Prescribed by: SIDNEY REYNOSO on 08/22/19 1254 Patient Home Medication List Home Medication List Reviewed: Yes Review of Systems Review of Systems Constitutional: no symptoms reported, see HPI Respiratory: No Symptoms Reported, See HPI; Denies Shortness of Air, Denies SOA With Exertion, Denies SOA at Rest Cardiovascular: See HPI, Chest Pain Gastrointestinal: No Symptoms Reported, See HPI Genitourinary: No Symptoms Reported, See HPI Musculoskeletal: no symptoms reported, see HPI Skin: no symptoms reported, see HPI Psychiatric/Neurological: See HPI, Anxiety Past Hbqwyxt-Onshlx-Ognffe Hx Past Med/Social Hx: Reviewed Nursing Past Med/Soc Hx Patient Social History Type Used: Cigarettes Former Smoker, Quit: August 17, 2015 Recent Foreign Travel: No Contact w/Someone Who Travel: No Recent Hopitalizations: No Immunizations Up To Date Tetanus Booster (TDap): Unknown Seasonal Allergies Seasonal Allergies: No Past Medical History Surgeries: Yes (EYE SURGERY x2, EAR TUBES X6, knee scope, HERNIA REPAIR) Adenoidectomy, Gallbladder, Orthopedic, Tonsillectomy Respiratory: No Cardiac: No Neurological: No Genitourinary: No Gastrointestinal: Yes Abdominal Hernia, Polyps, Irritable Bowel Musculoskeletal: No Endocrine: No HEENT: No Cancer: No Psychosocial: No Integumentary: No Blood Disorders: No Physical Exam Vital Signs Vital Signs - First Documented Capillary Refill : Height, Weight, BMI Height: 5'5.00" Weight: 269lbs. 0.0oz. 122.624191kw; 45.00 BMI Method:Stated General Appearance: No Apparent Distress, WD/WN, Obese HEENT: PERRL/EOMI, TMs Normal, Normal ENT Inspection, Pharynx Normal Neck: Full Range of Motion, Normal Inspection, Non Tender, Supple Respiratory: Chest Non Tender, Lungs Clear, Normal Breath Sounds Cardiovascular: Regular Rate, Rhythm, No Edema, No Murmur, Normal Peripheral Pulses Gastrointestinal: Normal Bowel Sounds, Non Tender, Soft Extremity: Normal Capillary Refill, Normal Inspection, Normal Range of Motion, Non Tender, No Calf Tenderness, No Pedal Edema Neurologic/Psychiatric: Alert, Oriented x3, No Motor/Sensory Deficits, Normal Mood/Affect Skin: Normal Color, Warm/Dry Progress/Results/Core Measures Results/Orders Lab Results Laboratory Tests Test 08/22/19 11:50 Range/Units White Blood Count 6.8 4.3-11.0 10^3/uL Red Blood Count 5.30 4.35-5.85 10^6/uL Hemoglobin 16.3 H 11.5-16.0 G/DL Hematocrit 46 35-52 % Mean Corpuscular Volume 86 80-99 FL Mean Corpuscular Hemoglobin 31 25-34 PG Mean Corpuscular Hemoglobin Concent 36 32-36 G/DL Red Cell Distribution Width 12.2 10.0-14.5 % Platelet Count 226 130-400 10^3/uL Mean Platelet Volume 10.4 7.4-10.4 FL Neutrophils (%) (Auto) 61 42-75 % Lymphocytes (%) (Auto) 28 12-44 % Monocytes (%) (Auto) 9 0-12 % Eosinophils (%) (Auto) 2 0-10 % Basophils (%) (Auto) 0 0-10 % Neutrophils # (Auto) 4.1 1.8-7.8 X 10^3 Lymphocytes # (Auto) 1.9 1.0-4.0 X 10^3 Monocytes # (Auto) 0.6 0.0-1.0 X 10^3 Eosinophils # (Auto) 0.1 0.0-0.3 10^3/uL Basophils # (Auto) 0.0 0.0-0.1 10^3/uL Prothrombin Time 12.9 12.2-14.7 SEC INR Comment 0.9 0.8-1.4 Activated Partial Thromboplast Time 34 24-35 SEC Sodium Level 139 135-145 MMOL/L Potassium Level 3.9 3.6-5.0 MMOL/L Chloride Level 107 98-107 MMOL/L Carbon Dioxide Level 20 L 21-32 MMOL/L Anion Gap 12 5-14 MMOL/L Blood Urea Nitrogen 10 7-18 MG/DL Creatinine 0.73 0.60-1.30 MG/DL Estimat Glomerular Filtration Rate > 60 BUN/Creatinine Ratio 14 Glucose Level 117 H 70-105 MG/DL Calcium Level 9.5 8.5-10.1 MG/DL Corrected Calcium 9.6 8.5-10.1 MG/DL Magnesium Level 2.1 1.6-2.4 MG/DL Total Bilirubin 2.4 H 0.1-1.0 MG/DL Aspartate Amino Transf (AST/SGOT) 38 H 5-34 U/L Alanine Aminotransferase (ALT/SGPT) 48 0-55 U/L Alkaline Phosphatase 90 40-136 U/L Myoglobin 52.9 10.0-92.0 NG/ML Troponin I < 0.028 <0.028 NG/ML Total Protein 6.8 6.4-8.2 GM/DL Albumin 3.9 3.2-4.5 GM/DL My Orders Orders - SIDNEY REYNOSO Cbc With Automated Diff (08/22/19 11:39) Magnesium (08/22/19 11:39) Chest 1 View, Ap/Pa Only (08/22/19 11:39) Ekg Tracing (08/22/19 11:39) Comprehensive Metabolic Panel (08/22/19 11:39) Myoglobin Serum (08/22/19 11:39) Protime With Inr (08/22/19 11:39) Partial Thromboplastin Time (08/22/19 11:39) O2 (08/22/19 11:39) Monitor-Rhythm Ecg Trace Only (08/22/19 11:39) Ed Iv/Invasive Line Start (08/22/19 11:39) Aspirin Chewable Tablet (Baby Aspirin Ch (08/22/19 11:45) Troponin I (08/22/19 11:50) Hydroxyzine Cap/Tab (Vistaril) (08/22/19 13:00) Medications Given in ED Current Medications Medications Dose Ordered Sig/Lj Route Start Time Stop Time Status Last Admin Dose Admin Aspirin 324 mg ONCE ONCE PO 08/22/19 11:45 08/22/19 11:46 DC 08/22/19 11:56 324 MG Hydroxyzine Pamoate 25 mg ONCE ONCE PO 08/22/19 13:00 08/22/19 13:01 DC 08/22/19 12:53 25 MG Vital Signs/I&O 08/22/19 08/22/19 08/22/19 11:37 11:37 13:04 Temp 36.4 36.4 Pulse 104 83 Resp 20 18 B/P (MAP) 161/99 (119) 144/100 (119) Pulse Ox 98 98 O2 Delivery Room Air Room Air Room Air Progress Progress Note : Time: 11:35 Progress Note Patient seen and evaluated, will obtain labs, aspirin 324 mg orally, EKG chest x-ray and continue to monitor. Patient denies being anxious enough to need medication at this time, talks calmly and answers all questions appropriately. 1200 No further chest pain. Awaiting lab results. 1240 patient reports symptoms are improving. Will give Hydroxyzine for anxiety. [address] Hernandez, agreeable with plan to d/c. He will see her in clinic upon d/c. 1300 discharge instructions and return precautions reviewed with the patient. All questions answered. Copies of labs and EKG given to her for appointment with Dr. Hernandez. Initial ECG Impression Date: August 22, 2019 Initial ECG Impression Time: 11:40 Initial ECG Rate: 96 Initial ECG Rhythm: Normal Sinus Initial ECG Intervals: Normal Initial ECG Intervals [place] 131, QRSD 96, QT 359, QTc 454. [place] P 36, QRS 39, T 17. Initial ECG Impression: Normal Initial ECG Comparisson: Unchanged (last EKG 2009) Comment Reviewed with Dr. Rivera agreed with interpretation. Diagnostic Imaging Diagonstic Imaging: Xray Plain Films/CT/US/NM/MRI: chest Comments NAME: MACRINA ARZOLA MED REC#: [id number] PT STATUS: REG ER : 1975 PHYSICIAN: SIDNEY REYNOSO ADMIT DATE: 08/22/19/ER Draft Date of Exam:08/22/19 CHEST 1 VIEW, AP/PA ONLY INDICATION: Chest pain. TIME OF EXAM: 12:00 p.m. Correlation is made with prior chest from 05/12/2019. FINDINGS: The heart size is normal. The pulmonary vascularity is unremarkable. The lungs are clear. No infiltrate, effusion or pneumothorax is detected. IMPRESSION: No acute cardiopulmonary process is detected. Dictated on workstation # [id number] Dict: 08/22/19 1208 Trans: 08/22/19 1209 [id number] Interpreted by: JESICA CARVAJAL MD Electronically signed by: Departure Impression Primary Impression: Anxiety Additional Impression: Chest wall pain Disposition: HOME, SELF-CARE Condition: Improved Departure-Patient Inst. Referrals: ROB GONZALEZ MD (PCP/Family) Primary Care Physician DEVANG HERNANDEZ MD Patient Instructions: Chest Pain That Is Not Caused by the Heart (DC), Anxiety, Adult (DC) Add. Discharge Instructions: Take Aspirin 81 mg daily. Go to Cardiology Clinic, you will see Dr. Hernandez today. [facility]. Alternate Tylenol 650 mg and Ibuprofen 600 mg every 4 hours, for pain. Take Hydroxyzine every 8 hours, as needed for anxiety. Keep appt with Dr. Gonzalez for tomorrow. Return to the Emergency Dept for new, urgent health care needs; including chest pain, shortness of breath, persistent nausea/vomiting. Scripts Hydroxyzine HCl (Hydroxyzine HCl) 25 Mg Tablet 25 MG PO Q8H, #20 TAB 0 Refills Prov: SIDNEY REYNOSO 08/22/19 Copy Copies To 1: ROB GONZALEZ MD; DEVANG HERNANDEZ MD, AMY ARNP August 22, 2019 11:55
[2019-08-22 11:58] LABS: BASOPHILS % (AUTO) 0 % (0-10); EOSINOPHILS # (AUTO) 0.1 10^3/uL (0.0-0.3); EOSINOPHILS % (AUTO) 2 % (0-10); HEMATOCRIT 46 % (35-52); HEMOGLOBIN 16.3 G/DL (11.5-16.0); LYMPHOCYTES # (AUTO) 1.9 X 10^3 (1.0-4.0); LYMPHOCYTES % (AUTO) 28 % (12-44); MEAN CORPUSCULAR HEMOGLOBIN 31 PG (25-34); MEAN CORPUSCULAR HGB CONC 36 G/DL (32-36); MEAN CORPUSCULAR VOLUME 86 FL (80-99); MEAN PLATELET VOLUME 10.4 FL (7.4-10.4); MONOCYTES # (AUTO) 0.6 X 10^3 (0.0-1.0); MONOCYTES % (AUTO) 9 % (0-12); NEUTROPHILS # (AUTO) 4.1 X 10^3 (1.8-7.8); NEUTROPHILS % (AUTO) 61 % (42-75); PLATELET COUNT 226 10^3/uL (130-400); RED CELL DISTRIBUTION WIDTH 12.2 % (10.0-14.5); WHITE BLOOD COUNT 6.8 10^3/uL (4.3-11.0)
[2019-08-22 12:09] LABS: ALBUMIN 3.9 GM/DL (3.2-4.5); CHLORIDE 107 MMOL/L (98-107); INR 0.9 (0.8-1.4); POTASSIUM 3.9 MMOL/L (3.6-5.0); PROTHROMBIN TIME PATIENT 12.9 SEC (12.2-14.7); SODIUM 139 MMOL/L (135-145)
[2019-08-22 12:10] LABS: CALCIUM 9.5 MG/DL (8.5-10.1)
--- NOTE | 2019-08-22 12:10 | Diagnostic Imaging Report ---
INDICATION: Chest pain. TIME OF EXAM: 12:00 p.m. Correlation is made with prior chest from 05/12/2019. FINDINGS: The heart size is normal. The pulmonary vascularity is unremarkable. The lungs are clear. No infiltrate, effusion or pneumothorax is detected. IMPRESSION: No acute cardiopulmonary process is detected. Dictated by: Dictated on workstation # [id number]
[2019-08-22 12:11] LABS: GLUCOSE 117 MG/DL (70-105); TOTAL PROTEIN 6.8 GM/DL (6.4-8.2)
[2019-08-22 12:12] LABS: CARBON DIOXIDE 20 MMOL/L (21-32)
[2019-08-22 12:13] LABS: BILIRUBIN,TOTAL 2.4 MG/DL (0.1-1.0)
[2019-08-22 12:15] LABS: ALKALINE PHOSPHATASE 90 U/L (40-136); CREATININE SERUM 0.73 MG/DL (0.60-1.30); GFR ESTIMATED > 60
[2019-08-22 12:16] LABS: BUN/CREATININE RATIO 14
[2019-08-22 12:18] LABS: ALANINE AMINOTRANSFERASE 48 U/L (0-55); MAGNESIUM 2.1 MG/DL (1.6-2.4)
[2019-08-22] MEDS ORDERED: HYDR-700 PO (12:54)
[2019-08-22] MEDS ORDERED: hydrOXYzine (VISTARIL/ATARAX) 25 MG capsule/tablet PO ONE (13:00)
[2019-08-22 13:04] VITALS: BP 144/100
== END 2019-08-22 13:04 | disposition home or self-care (01) ==
LOC: EDUNIT# 11:35 → ER 11:38
DX: F41.9 Anxiety disorder, unspecified (principal); R07.89 Other chest pain; Z88.0 Allergy status to penicillin; Z87.891 Personal history of nicotine dependence
CPT/HCPCS: 71045; 80053; 83735; 83874; 84484; 85025; 85610; 85730; 93041

== ENCOUNTER → 2019-08-25 | Outpatient (CLI) | payer OTHER ==
[~2019-08-25] MED LIST changes: +HYDR-700 PO
== END ==
LOC: CARD 14:17
PROVIDERS: ATTEND Internal Medicine Cardiovascular Disease
DX: Q96.9 Turner's syndrome, unspecified (principal); I10 Essential (primary) hypertension; R07.9 Chest pain, unspecified; F32.9 Major depressive disorder, single episode, unspecified
CPT/HCPCS: 93306

== ENCOUNTER → 2019-08-31 | Outpatient (CLI) | payer OTHER ==
[~2019-08-31] VITALS: Ht 165 cm; Wt 118.0 kg
[~2019-08-31] MED LIST changes: +CATHETER FLUSH 10 ML SYR IV PRN; +REGADENOSON 0.4 MG/5 ML SYR (LEXISCAN) IV ONE
--- NOTE | 2019-08-31 19:04 | STRESS TEST ---
DATE OF SERVICE: 08/31/2019 LEXISCAN MYOVIEW STRESS TEST REPORT REFERRING PHYSICIAN: Dr. Higinio Clemente Baseline heart rate is 103. Baseline blood pressure 162/106. Baseline EKG is sinus rhythm with no ischemic changes. In summary, the patient received 10.66 mCi of technetium-99 Myoview and the resting images were obtained. Then, the patient received 0.4 mg of Lexiscan followed by 32.0 mCi of technetium-99 Myoview. Throughout the test, there were no EKG changes. The resting and stress images were reviewed and compared in the short axis, horizontal long axis, and vertical long axis views. Review of the images showed good radiotracer uptake with no significant ischemia or infarction. SSS is 2, SDS 2, TID value 1.03. On the gated images, the left ventricle appeared to be normal size with normal contractility. Calculated ejection fraction 63%. CONCLUSION: 1. The patient tolerated Lexiscan well. 2. No ischemia or infarction on SPECT images. 3. Normal left ventricular size with normal contractility. Calculated ejection fraction 63%. Job ID: [id number] DocumentID: [id number] Dictated Date: 08/31/2019 14:54:13 Cutting Machine Tender Date: 08/31/2019 19:04:14 Dictated By: DEVANG ENG MD
== END ==
LOC: CARD 08:12
PROVIDERS: ATTEND Internal Medicine Cardiovascular Disease
DX: Q96.9 Turner's syndrome, unspecified (principal); I10 Essential (primary) hypertension; F32.9 Major depressive disorder, single episode, unspecified
CPT/HCPCS: 78452; 93017

== ENCOUNTER → 2020-02-08 | Outpatient (CLI) | payer OTHER ==
[~2020-02-08] MED LIST changes: -CATHETER FLUSH 10 ML SYR IV PRN; -REGADENOSON 0.4 MG/5 ML SYR (LEXISCAN) IV ONE
--- NOTE | 2020-02-08 10:23 | Diagnostic Imaging Report ---
EXAMINATION: US Right Lower Extremity Venous Duplex. TECHNIQUE: Multiple real-time grayscale images were obtained over the right lower extremity in various projections. Additional spectral analysis and color Doppler duplex images were also obtained. HISTORY: Right lower extremity pain and swelling. COMPARISON: None available. FINDINGS: The right common femoral vein, deep femoral vein, superficial femoral vein and popliteal vein are patent with normal porras scale and doppler appearance. There is normal respiratory variation and augmentation. IMPRESSION: 1. No DVT of the right lower extremity. Dictated by: Dictated on workstation # [id number]
== END ==
LOC: RAD 09:40
PROVIDERS: ATTEND Family Medicine
DX: M79.604 Pain in right leg (principal); M79.89 Other specified soft tissue disorders

== ENCOUNTER → 2020-11-19 | Outpatient (CLI) | payer OTHER | LOC: CARD 08:50 | PROVIDERS: ATTEND Internal Medicine Cardiovascular Disease | DX: I10 Essential (primary) hypertension (principal) | CPT/HCPCS: 93306 ==

== ENCOUNTER 2021-05-06 10:16 | Emergency (ER) | payer OTHER ==
[~2021-05-06] VITALS: Ht 165 cm; Wt 127.0 kg
[2021-05-06 11:04] LABS: BASOPHILS # (AUTO) 0.1 10^3/uL (0.0-0.1); BASOPHILS % (AUTO) 1 % (0-10); EOSINOPHILS # (AUTO) 0.1 10^3/uL (0.0-0.3); EOSINOPHILS % (AUTO) 1 % (0-10); HEMATOCRIT 45 % (35-52); HEMOGLOBIN 15.5 g/dL (11.5-16.0); LYMPHOCYTES # (AUTO) 1.7 10^3/uL (1.0-4.0); LYMPHOCYTES % (AUTO) 18 % (12-44); MEAN CORPUSCULAR HEMOGLOBIN 31 pg (25-34); MEAN CORPUSCULAR HGB CONC 34 g/dL (32-36); MEAN CORPUSCULAR VOLUME 90 fL (80-99); MEAN PLATELET VOLUME 11.2 fL (9.0-12.2); MONOCYTES # (AUTO) 0.6 10^3/uL (0.0-1.0); MONOCYTES % (AUTO) 7 % (0-12); NEUTROPHILS % (AUTO) 73 % (42-75); PLATELET COUNT 207 10^3/uL (130-400); WHITE BLOOD COUNT 9.6 10^3/uL (4.3-11.0)
--- NOTE | 2021-05-06 11:04 | ED Neurological Problem ---
General Stated Complaint: HEADACHE/BODYACHES/BACK OF BODY NUMB Source: patient Exam Limitations: no limitations History of Present Illness Date Seen by Provider: May 06, 2021 Time Seen by Provider: 10:59 Initial Comments You would be great at that you want to back okay to self to ER with headache, right-sided tingling from the elbow to the fingertips and from the knee to the toes. The right arm and leg feel heavy and somewhat weaker than usual. She does not notice any obvious motor weakness, only a paresthesia to these locations. Symptoms present for about 10 days. She saw primary care and was diagnosed with high blood pressure started on metoprolol 25 mg. She then saw her marketing manager Dr. Hernandez who increased metoprolol to 50 mg and did carotid Dopplers last week which were normal. She then saw the chiropractor on 05/03/2021 and had manipulation of the neck. She denies noticing any improvement or worsening but states she was told that it was "very out of alignment". Her only medication is metoprolol and baby aspirin. She has a history of Pavon syndrome. Timing/Duration: 1 week Severity: moderate Associated Symptoms: denies symptoms; No slurred speech; tingling in legs/feet Allergies and Home Medications Allergies Coded Allergies: amoxicillin (Unverified Allergy, Mild, 07/06/09) Patient Home Medication List Home Medication List Reviewed: Yes Alprazolam (Xanax) 0.25 Mg Tablet, 1-2 TAB PO BID PRN for ANXIETY Prescribed by: MELODIE DOWNING on 05/06/21 1417 Benzonatate (Tessalon Perle) 100 Mg Capsule, 100 MG PO Q6H PRN for COUGH Prescribed by: KAITLIN ROMERO on 05/13/19 0035 Docusate Sodium (Colace) 100 Mg Capsule, 100 MG PO BID Prescribed by: HIMA ROCA on 08/19/18 1025 Hydrocodone Bit/Acetaminophen (Lortab 5 Mg Tablet) 1 Tab Tab, 1-2 TAB PO Q6H PRN for PAIN-MODERATE Prescribed by: HIMA ROCA on 08/19/18 1025 Hydroxyzine HCl (Hydroxyzine HCl) 25 Mg Tablet, 25 MG PO Q8H Prescribed by: SIDNEY REYNOSO on 08/22/19 1254 Review of Systems Review of Systems Constitutional: see HPI Eyes: No Symptoms Reported Ears, Nose, Mouth, Throat: no symptoms reported Respiratory: no symptoms reported Cardiovascular: no symptoms reported Genitourinary: no symptoms reported Musculoskeletal: no symptoms reported Skin: no symptoms reported Psychiatric/Neurological: See HPI Endocrine: No Symptoms Reported Hematologic/Lymphatic: No Symptoms Reported Past Adlufhp-Mpnnoj-Fggaeb Hx Immunizations Up To Date Tetanus Booster (TDap): Unknown Seasonal Allergies Seasonal Allergies: No Past Medical History Surgeries: Yes (EYE SURGERY x2, EAR TUBES X6, knee scope, HERNIA REPAIR) Adenoidectomy, Gallbladder, Orthopedic, Tonsillectomy Respiratory: No Cardiac: No Neurological: No Genitourinary: No Gastrointestinal: Yes Abdominal Hernia, Polyps, Irritable Bowel Musculoskeletal: No Endocrine: No HEENT: No Cancer: No Psychosocial: No Integumentary: No Blood Disorders: No Physical Exam Vital Signs Vital Signs - First Documented 05/06/21 11:00 Temp 36.7 Pulse 80 Resp 24 B/P (MAP) 159/101 (120) Pulse Ox 97 O2 Delivery Room Air Capillary Refill : Height, Weight, BMI Height: 5'5.00" Weight: 269lbs. 0.0oz. [id number]; 43.34 BMI Method:Stated General Appearance: WD/WN, no apparent distress HEENT: PERRL/EOMI, normal ENT inspection Neck: non-tender, full range of motion Respiratory: no respiratory distress, no accessory muscle use Gastrointestinal: normal bowel sounds, non tender, soft Extremities: normal range of motion, non-tender Neurologic/Psychiatric: alert, normal mood/affect, oriented x 3 Coordination/Gait: normal finger to nose, normal gait Motor/Sensory: no motor deficit Skin: normal color, warm/dry Stroke Onset of Symptoms Date of Onset of Symptoms: Apr 25, 2021 Time of Symptom Onset: 11:03 Onset of Symptoms: Yes Symptoms onset unknown: No NIH Stroke Scale Assessment Select: Initial Level of Consciousness: 0=Alert (0), Level of Consciousness- Questions: 0=Answers both month/age (0), LOC Commands: 0=Performs both tasks (0), Visual Baugh: 0=No visual loss (0), Facial Movement (Facial Paresis): 0=Normal symmetrical mnt (0), Motor Function-Arms Right: 0=No drift (0), Motor Function-Arms Left: 0=No drift (0), Motor Function-Legs Right: 0=No drift (0), Motor Function-Legs Left: 0=No drift (0), Limb Ataxia: 0=Absent (0), Sensory: 1=Mild to Moderate loss (1), Best Language: 0=No aphasia (0), Dysarthria: 0=Normal (0), Extinction & Inattention: 0=No abnormality (0), Total: 1 Stroke Thrombolytic Exclusion Age 18 or Over: Yes Acute intenal hemorrhage: No History of CVA: No Uncontrolled Coagulation Defec: No Intracranial Hemorrhage: No Severe Hypertension: No GI or Bleed: No Subarachnoid Hemorrhage: No Intracranial Neoplasm/Aneurysm: No Oral Anticoagulants: No Surgery or Trauma: No Puncture of Non-Compressible V: No Recent CPR: No Diabetic Hemorrhagic Retinopat: No Organ Biopsy: No Recent Obstetric Delivery: No Glucose: No Significant Hepatic Dysfunctio: No NIH Stoke Scale >22: No Bacterial Endocarditis: No Pericarditis: No Improving Symptoms: No Platelets: No TPA Contraindication: No Progress/Results/Core Measures Results/Orders Lab Results Laboratory Tests Test 05/06/21 10:56 Range/Units White Blood Count 9.6 4.3-11.0 10^3/uL Red Blood Count 5.01 3.80-5.11 10^6/uL Hemoglobin 15.5 11.5-16.0 g/dL Hematocrit 45 35-52 % Mean Corpuscular Volume 90 80-99 fL Mean Corpuscular Hemoglobin 31 25-34 pg Mean Corpuscular Hemoglobin Concent 34 32-36 g/dL Red Cell Distribution Width 11.6 10.0-14.5 % Platelet Count 207 130-400 10^3/uL Mean Platelet Volume 11.2 9.0-12.2 fL Immature Granulocyte % (Auto) 0 % Neutrophils (%) (Auto) 73 42-75 % Lymphocytes (%) (Auto) 18 12-44 % Monocytes (%) (Auto) 7 0-12 % Eosinophils (%) (Auto) 1 0-10 % Basophils (%) (Auto) 1 0-10 % Neutrophils # (Auto) 7.0 1.8-7.8 10^3/uL Lymphocytes # (Auto) 1.7 1.0-4.0 10^3/uL Monocytes # (Auto) 0.6 0.0-1.0 10^3/uL Eosinophils # (Auto) 0.1 0.0-0.3 10^3/uL Basophils # (Auto) 0.1 0.0-0.1 10^3/uL Immature Granulocyte # (Auto) 0.0 0.0-0.1 10^3/uL D-Dimer 0.77 H 0.00-0.49 UG/ML Sodium Level 140 135-145 MMOL/L Potassium Level 4.1 3.6-5.0 MMOL/L Chloride Level 108 H 98-107 MMOL/L Carbon Dioxide Level 20 L 21-32 MMOL/L Anion Gap 12 5-14 MMOL/L Blood Urea Nitrogen 11 7-18 MG/DL Creatinine 0.64 0.60-1.30 MG/DL Estimat Glomerular Filtration Rate 112 BUN/Creatinine Ratio 17 Glucose Level 113 H 70-105 MG/DL Calcium Level 9.3 8.5-10.1 MG/DL Corrected Calcium 9.5 8.5-10.1 MG/DL Total Bilirubin 2.6 H 0.1-1.0 MG/DL Aspartate Amino Transf (AST/SGOT) 27 5-34 U/L Alanine Aminotransferase (ALT/SGPT) 34 0-55 U/L Alkaline Phosphatase 66 40-136 U/L C-Reactive Protein High Sensitivity 0.75 H 0.00-0.50 MG/DL Total Protein 6.6 6.4-8.2 GM/DL Albumin 3.7 3.2-4.5 GM/DL Serum Test, Qualitative NEGATIVE NEGATIVE My Orders Orders - MELODIE DOWNING APRN Cbc With Automated Diff (05/06/21 10:55) Comprehensive Metabolic Panel (05/06/21 10:55) Hs C Reactive Protein (05/06/21 10:55) Ed Iv/Invasive Line Start (05/06/21 10:55) Fibrin Degradation Products (05/06/21 10:55) Hcg,Qualitative Serum (05/06/21 10:55) Ed Iv/Invasive Line Start (05/06/21 10:55) Ct Head/Cervical Spine Wo (05/06/21 11:20) Echo W Doppler/Color Flow (05/06/21 12:35) Ct Angio Head/Neck (05/06/21 12:36) Iohexol Injection (Omnipaque 350 Mg/Ml 1 (05/06/21 13:00) Received Contrast (Hold Metformin- Contr (05/06/21 13:00) Sodium Chloride Flush (Catheter Flush Sy (05/06/21 13:00) Ns (Ivpb) (Sodium Chloride 0.9% Ivpb Bag (05/06/21 13:00) Medications Given in ED Current Medications Medications Dose Ordered Sig/Lj Route Start Time Stop Time Status Last Admin Dose Admin Iohexol 75 ml ONCE ONCE IV 05/06/21 13:00 05/06/21 13:01 DC 05/06/21 13:13 75 ML Sodium Chloride 10 ml NEEDED PRN IV 05/06/21 13:00 05/06/21 13:13 10 ML Sodium Chloride 100 ml ONCE ONCE IV 05/06/21 13:00 05/06/21 13:01 DC 05/06/21 13:13 80 ML Vital Signs/I&O 05/06/21 05/06/21 11:00 14:17 Temp 36.7 Pulse 80 82 Resp 24 18 B/P (MAP) 159/101 (120) 152/112 Pulse Ox 97 99 O2 Delivery Room Air Room Air Departure Communication (Admissions) NAME: MACRINA ARZOLA [facility] REC#: [id number] PT STATUS: REG ER : 1975 PHYSICIAN: MELODIE DOWNING APRN ADMIT DATE: 05/06/21/ER Draft Date of Exam:05/06/21 CT ANGIO HEAD/NECK PROCEDURE: CT angiography of the head and CT angiography of the neck with and without contrast. TECHNIQUE: Contiguous noncontrast images were obtained from the skull base through the vertex. After intravenous contrast administration, helical CT angiography of the neck was performed. Source data was reformatted into 3D MIP projections. Delayed post contrast acquisition was also obtained. Auto Exposure Controls were utilized during the CT exam to meet ALARA standards for radiation dose reduction. INDICATION: Stroke. COMPARISON: CT head without contrast performed earlier today. FINDINGS: Again seen is the region of low attenuation in the left basal ganglia extending into the deep white matter of the left frontal lobe. There are some subtle indeterminate serpiginous enhancement and this location with an incomplete ring. No intracranial hemorrhage is identified on postcontrast imaging. No hydrocephalus or extra-axial fluid collections. CTA demonstrates a left common carotid originating from the innominate. The basilar, bilateral vertebral, common carotid, internal carotid, anterior cerebral, middle cerebral and posterior cerebral arteries demonstrate no high-grade narrowing, aneurysm or dissection. The dural venous sinuses are grossly patent. Dominant right dural venous sinuses. Mucosal thickening and fluid in the right frontal anterior ethmoid sinuses. Mild mucosal thickening in the maxillary sinuses. No acute CT findings in the cervical spine. Visualized paravertebral soft tissues are unremarkable. Lung apices are clear. IMPRESSION: 1. No large vessel occlusion. No high-grade narrowing, aneurysm or dissection involving major arteries in the head and neck. 2. There is some serpiginous incomplete ring enhancement involving the low-attenuation in the left basal ganglia and deep white matter left frontal lobe. This is nonspecific and could be due to hyperemia versus enhancement related to a mass. Again, MRI without and with IV contrast would be beneficial for further evaluation. Dictated on workstation # [id number] Dict: 05/06/21 1337 Trans: 05/06/21 1358 CVB [id number] Interpreted by: SILVIA BAJWA MD Electronically signed by: [id number]-we tried to get her into the MRI scanner but she wouldnt fit. We will have to settle for a CT. given that her symptoms have been present for 10 days if this does represent a CVA it will show up on CT by now. 1237-discussed with Dr. Gonzalez. We will get an echo here in the ER, CT angio head neck and if this is normal since this is a subacute presentation we will discharged home for further work-up outpatient. She will need referral to an open MRI outpatient given that body habitus precludes her from using the one here. 1407-spoke with [facility] at [place], they cannot schedule an MRI until sometime in May. Spoke with [facility] imaging in [place] they require prior authorization first. [facility] 1414-spoke with Dr. Gonzalez. We will have the patient call his office, he will see her and then arrange outpatient MRI with the required prior authorization. Impression Primary Impression: Subacute cva vs mass Disposition: HOME, SELF-CARE Condition: Stable Departure-Patient Inst. Decision time for Depature: 13:50 Referrals: ROB GONZALEZ MD (PCP/Family) Primary Care Physician Patient Instructions: Stroke (DC) Add. Discharge Instructions: 1. The CT brain findings could represent a stroke or a mass within the brain. We need MRI to further evaluate this. Call Dr. Gonzalez's office today or tomorrow to make an appointment to be seen this week. I have spoken with some imaging centers in [place] but they require a prior authorization from your insurance in order to schedule you for the MRI. Prior authorization is something that Dr. Gonzalez's office will help facilitate. In the meantime continue your aspirin. Return to ER for any worsening. Scripts Alprazolam (Xanax) 0.25 Mg Tablet 1-2 TAB PO BID PRN for ANXIETY, #14 TAB Prov: MELODIE DOWNING APRN 05/06/21 Work/School Note: Work Release Form Date Seen in the Emergency Department: May 06, 2021 Return to Work: May 08, 2021 Copy Copies To 1: ROB GONZALEZ MD; DEVANG HERNANDEZ MD, PETER J APRN May 06, 2021 11:04
[2021-05-06 11:17] LABS: ALBUMIN 3.7 GM/DL (3.2-4.5); POTASSIUM 4.1 MMOL/L (3.6-5.0)
[2021-05-06 11:18] LABS: CALCIUM 9.3 MG/DL (8.5-10.1)
[2021-05-06 11:19] LABS: TOTAL PROTEIN 6.6 GM/DL (6.4-8.2)
[2021-05-06 11:21] LABS: BILIRUBIN,TOTAL 2.6 MG/DL (0.1-1.0)
[2021-05-06 11:23] LABS: CREATININE SERUM 0.64 MG/DL (0.60-1.30)
--- NOTE | 2021-05-06 12:30 | Diagnostic Imaging Report ---
PROCEDURE: CT head and CT cervical spine without contrast. TECHNIQUE: Multiple contiguous axial images were obtained through the brain and cervical spine without the use of intravenous contrast. Sagittal and coronal reformations through the cervical spine were then performed. Auto Exposure Controls were utilized during the CT exam to meet ALARA standards for radiation dose reduction. INDICATION: Right-sided tingling x10 days. Headache. COMPARISON: None. FINDINGS: CT HEAD: Indeterminate region of low attenuation in the left basal ganglia extending into the deep white matter of the posterior left frontal lobe. This measures up approximately 2.2 x 2.9 cm. No significant mass effect. No intracranial hemorrhage. No hydrocephalus. Mucosal thickening and fluid in the right frontal sinus and anterior ethmoid sinuses. There is mild mucosal thickening in the maxillary sinuses. Mastoids are clear. Osseous structures are intact. CT CERVICAL SPINE: Normal alignment. Vertebral body heights are preserved. Mild degenerative endplate changes are greatest at C6-C7. No fractures. Uncovertebral joint hypertrophy results in at least moderate neural foraminal narrowing on the right at C2-C3, C4-C5, bilaterally at C5-C6 and on the right at C6-C7. Visualized paravertebral soft tissues are unremarkable. Lung apices are clear. IMPRESSION: 1. Region of low attenuation in the left basal ganglia extending into the deep white matter of the posterior left frontal lobe is suspicious for acute to subacute infarction. Other causes of edema, including inflammatory process such as demyelination or a mass are not excluded. An MRI without and with IV contrast is recommended. 2. Spondylotic changes in the cervical spine result in multilevel high-grade neural foraminal narrowing. No acute osseous findings. Dictated by: Dictated on workstation # [id number]
[2021-05-06] MEDS ORDERED: IOHEXOL 350 MG/ML 100 ML (OMNIPAQUE 350) VIAL IV ONE (13:00)
[2021-05-06] MEDS ORDERED: HOLD METFORMIN - RECEIVED CONTRAST 20 ML VIAL IV SCH (13:00)
[2021-05-06] MEDS ORDERED: NS 100 ML (IVPB) BAG IV ONE (13:00)
[2021-05-06] MEDS ORDERED: CATHETER FLUSH 10 ML SYR IV PRN (13:00)
--- NOTE | 2021-05-06 13:58 | Diagnostic Imaging Report ---
PROCEDURE: CT angiography of the head and CT angiography of the neck with and without contrast. TECHNIQUE: Contiguous noncontrast images were obtained from the skull base through the vertex. After intravenous contrast administration, helical CT angiography of the neck was performed. Source data was reformatted into 3D MIP projections. Delayed post contrast acquisition was also obtained. Auto Exposure Controls were utilized during the CT exam to meet ALARA standards for radiation dose reduction. INDICATION: Stroke. COMPARISON: CT head without contrast performed earlier today. FINDINGS: Again seen is the region of low attenuation in the left basal ganglia extending into the deep white matter of the left frontal lobe. There are some subtle indeterminate serpiginous enhancement and this location with an incomplete ring. No intracranial hemorrhage is identified on postcontrast imaging. No hydrocephalus or extra-axial fluid collections. CTA demonstrates a left common carotid originating from the innominate. The basilar, bilateral vertebral, common carotid, internal carotid, anterior cerebral, middle cerebral and posterior cerebral arteries demonstrate no high-grade narrowing, aneurysm or dissection. The dural venous sinuses are grossly patent. Dominant right dural venous sinuses. Mucosal thickening and fluid in the right frontal anterior ethmoid sinuses. Mild mucosal thickening in the maxillary sinuses. No acute CT findings in the cervical spine. Visualized paravertebral soft tissues are unremarkable. Lung apices are clear. IMPRESSION: 1. No large vessel occlusion. No high-grade narrowing, aneurysm or dissection involving major arteries in the head and neck. 2. There is some serpiginous incomplete ring enhancement involving the low-attenuation in the left basal ganglia and deep white matter left frontal lobe. This is nonspecific and could be due to hyperemia versus enhancement related to a mass. Again, MRI without and with IV contrast would be beneficial for further evaluation. Dictated by: Dictated on workstation # [id number]
[2021-05-06] MEDS ORDERED: ALPR0.25 PO (14:17)
[2021-05-06 14:33] VITALS: BP 157/93
== END 2021-05-06 14:31 | disposition home or self-care (01) ==
LOC: EDUNIT# 10:16 → ER 10:17
DX: I63.9 Cerebral infarction, unspecified (principal)
CPT/HCPCS: 36415; 70450; 70496; 70498; 72125; 80053; 84703; 85025; 85379; 86141; 93306

== ENCOUNTER 2021-05-11 13:33 | Emergency (ER) | payer OTHER ==
[~2021-05-11] VITALS: Ht 165 cm; Wt 130.0 kg
[~2021-05-11 13:33] MED LIST changes: +ALPR0.25 PO
--- NOTE | 2021-05-11 15:30 | ED Neurological Problem ---
General Chief Complaint: Neurological Problems Stated Complaint: R SIDE WEAKNESS Nursing Triage Note: PT AMB TO ED BY POV WITH C/O R SIDED NUMBNESS/WEAKNESS X 2 WKS. REPORTS R LEG FEELS "HEAVY" AND "TINGLING" ON R SIDE OF BODY. DENIES DIZZINESS, CA, VISION CHANGES, SOB, CP. A&O X 4 STRENGTH EQUAL BILAT. REPORTS SHE IS WAITING FOR MRI. Source: patient, old records Exam Limitations: no limitations History of Present Illness Date Seen by Provider: May 11, 2021 Time Seen by Provider: 13:55 Initial Comments This 45-year-old woman presents to the emergency room with primary complaint of paresthesias in her right extremities. She was seated for the same symptoms on May 06. She states the symptoms seem a bit worse in the right leg now feels "heavy". There is no measurable weakness on exam but she feels a sensation of weakness. Gait is not disrupted. She had a thorough work-up on May 06 and MRI was attempted to further evaluate a brain lesion seen on CT angiogram. Her shoulder with would not allow usage of MRI machine at this facility. She is awaiting scheduling of an outpatient MRI. No bowel or bladder dysfunction was described. She has mild intermittent headache that has not worsened. Allergies and Home Medications Allergies Coded Allergies: amoxicillin (Unverified Allergy, Mild, 07/06/09) Patient Home Medication List Home Medication List Reviewed: Yes Alprazolam (Xanax) 0.25 Mg Tablet, 1-2 TAB PO BID PRN for ANXIETY Prescribed by: MELODIE DOWNING on 05/06/21 1417 Benzonatate (Tessalon Perle) 100 Mg Capsule, 100 MG PO Q6H PRN for COUGH Prescribed by: KAITLIN ROMERO on 05/13/19 0035 Docusate Sodium (Colace) 100 Mg Capsule, 100 MG PO BID Prescribed by: HIMA ROCA on 08/19/18 1025 Hydrocodone Bit/Acetaminophen (Lortab 5 Mg Tablet) 1 Tab Tab, 1-2 TAB PO Q6H PRN for PAIN-MODERATE Prescribed by: HIMA ROCA on 08/19/18 1025 Hydroxyzine HCl (Hydroxyzine HCl) 25 Mg Tablet, 25 MG PO Q8H Prescribed by: SIDNEY REYNOSO on 08/22/19 1254 Review of Systems Review of Systems Constitutional: no symptoms reported Eyes: No Symptoms Reported Ears, Nose, Mouth, Throat: no symptoms reported Respiratory: no symptoms reported Cardiovascular: no symptoms reported Gastrointestinal: no symptoms reported Genitourinary: no symptoms reported : No Musculoskeletal: no symptoms reported Skin: no symptoms reported Psychiatric/Neurological: See HPI Endocrine: No Symptoms Reported Hematologic/Lymphatic: No Symptoms Reported Past Kxlpyni-Voyfcu-Jdysdb Hx Patient Social History Tobacco Use?: No Use of E-Cig and/or Vaping dev: No Substance use?: No Alcohol Use?: Yes Alcohol type: Beer, Hard Liquor, Wine Alcohol Frequency: Once in a while Pt feels they are or have been: No Immunizations Up To Date Tetanus Booster (TDap): Unknown Influenza Vaccine Up-to-Date: No; Not Current First/Initial COVID19 Vaccinat: 2020 Second COVID19 Vaccination Calvin: JAN 2021 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: [employer] Seasonal Allergies Seasonal Allergies: No Past Medical History Surgery/Hospitalization HX: TURNERS SYNDROME Surgeries: Yes (EYE SURGERY x2, EAR TUBES X6, knee scope, HERNIA REPAIR) Adenoidectomy, Gallbladder, Orthopedic, Tonsillectomy Respiratory: No Cardiac: No Neurological: No Genitourinary: No Gastrointestinal: Yes Abdominal Hernia, Polyps, Irritable Bowel Musculoskeletal: No Endocrine: Yes (Morbid obesity) HEENT: No Cancer: No Psychosocial: No Integumentary: No Blood Disorders: No Physical Exam Vital Signs Vital Signs - First Documented 05/11/21 13:43 Temp 36.6 Pulse 79 Resp 16 B/P (MAP) 136/109 (118) Pulse Ox 98 O2 Delivery Room Air Capillary Refill : Less Than 3 Seconds Height, Weight, BMI Height: 5'5.00" Weight: 269lbs. 0.0oz. 122.845862sf; 47.00 BMI Method:Stated General Appearance: WD/WN, no apparent distress, other (Anxious) HEENT: PERRL/EOMI, normal ENT inspection Neck: normal inspection Respiratory: lungs clear, normal breath sounds, no respiratory distress Cardiovascular: regular rate, rhythm, no edema, no murmur Gastrointestinal: normal bowel sounds, non tender, soft Neurologic/Psychiatric: alert, normal mood/affect, oriented x 3 Crainal Nerves: normal hearing, normal speech, PERRL, other (Questionable very subtle right eyelid droop) Coordination/Gait: normal finger to nose Motor/Sensory: no motor deficit, sensory deficit (Sensation is intact but she has a feeling of decreased intensity of sensation on the right face, upper extremity, and lower extremity.) Skin: normal color, warm/dry Stroke Stroke Thrombolytic Exclusion Age 18 or Over: Yes Acute intenal hemorrhage: No History of CVA: No Uncontrolled Coagulation Defec: No Intracranial Hemorrhage: No Severe Hypertension: No GI or Bleed: No Subarachnoid Hemorrhage: No Intracranial Neoplasm/Aneurysm: No Oral Anticoagulants: No Surgery or Trauma: No Puncture of Non-Compressible V: No Recent CPR: No Diabetic Hemorrhagic Retinopat: No Organ Biopsy: No Recent Obstetric Delivery: No Glucose: No Significant Hepatic Dysfunctio: No NIH Stoke Scale >22: No Bacterial Endocarditis: No Pericarditis: No Improving Symptoms: No Platelets: No Progress/Results/Core Measures Results/Orders My Orders Orders - CAITLYN MUNGUIA MD Iohexol Injection (Omnipaque 350 Mg/Ml 1 (05/11/21 16:00) Received Contrast (Hold Metformin- Contr (05/11/21 16:00) Sodium Chloride Flush (Catheter Flush Sy (05/11/21 16:00) Ns (Ivpb) (Sodium Chloride 0.9% Ivpb Bag (05/11/21 16:00) Vital Signs/I&O 05/11/21 05/11/21 13:43 15:40 Temp 36.6 36.3 Pulse 79 73 Resp 16 17 B/P (MAP) 136/109 (118) 131/92 Pulse Ox 98 97 O2 Delivery Room Air Room Air Blood Pressure Mean: 118 Progress Progress Note : Progress Note There appears to be no change in measurable neurologic deficits from prior exam. Symptoms have been present for about 2 weeks. I did contact Dr. Gonzalez. He confirmed they are working on arrangements for outpatient MRI at [facility]. I contacted [facility] to inquire about the size of their MRI machine. The bore diameter is 72 cm and the weight limit is 550 pounds. By my measurement patient's shoulder width is 70 cm. She was therefore instructed to present to the [facility] ER if she has worsening neurologic deficits. The next step in her care is MRI for a more definitive diagnosis. Initial ECG Impression Date: May 11, 2021 Initial ECG Impression Time: 13:50 Initial ECG Rate: 77 Initial ECG Rhythm: Normal Sinus Initial ECG Impression: Normal Comment Sinus rhythm with no diagnostic ST elevation or depression. Subtle ST changes. No abnormal intervals or axis deviation. Departure Impression Primary Impression: Paresthesia of right arm and leg Additional Impression: Abnormal CT of brain Disposition: HOME, SELF-CARE Condition: Stable Departure-Patient Inst. Decision time for Depature: 15:27 Referrals: ROB GONZALEZ MD (PCP/Family) Primary Care Physician Patient Instructions: Paresthesia (DC) Add. Discharge Instructions: Follow-up with your insurance and Dr. Gonzalez's office on Thursday to check on the status of your MRI order. If you have worsening symptoms such as notable true weakness, facial drooping, changes in speech, escalating headache, etc. please present to the ER promptly for further evaluation. Consider presenting directly to [facility] in [place] where they have MRI equipment appropriate for your situation. Call with questions or concerns. Work toward weight loss to help facilitate any future imaging needs. All discharge instructions reviewed with patient and/or family. Voiced unders tanding. Copy Copies To 1: ROB GONZALEZ MD, JOSHUA T MD May 11, 2021 15:30
[2021-05-11 15:40] VITALS: BP 131/92
[2021-05-11] MEDS ORDERED: HOLD METFORMIN - RECEIVED CONTRAST 20 ML VIAL IV SCH (16:00)
[2021-05-11] MEDS ORDERED: IOHEXOL 350 MG/ML 100 ML (OMNIPAQUE 350) VIAL IV ONE (16:00)
[2021-05-11] MEDS ORDERED: CATHETER FLUSH 10 ML SYR IV PRN (16:00)
[2021-05-11] MEDS ORDERED: NS 100 ML (IVPB) BAG IV ONE (16:00)
== END 2021-05-11 15:40 | disposition home or self-care (01) ==
LOC: EDUNIT# 13:33 → ER 13:37
DX: R20.2 Paresthesia of skin (principal); R94.02 Abnormal brain scan; E66.01 Morbid (severe) obesity due to excess calories; Z68.42 Body mass index [BMI] 45.0-49.9, adult
CPT/HCPCS: 93005; 99281

== ENCOUNTER → 2021-05-30 | Outpatient (CLI) | payer OTHER ==
--- NOTE | 2021-05-30 13:38 | Diagnostic Imaging Report ---
PROCEDURE: US right lower extremity venous. TECHNIQUE: Multiple real-time grayscale images were obtained over the right lower extremity in various projections. Additional spectral analysis and color Doppler duplex images were also obtained. INDICATION: Right lower extremity edema. FINDINGS: Femoropopliteal deep venous system showed normal color flow, normal compressibility, and normal waveforms. No deep vein thrombus, and no visualized superficial thrombi. No fluid collection was documented. IMPRESSION: Normal negative unilateral right lower extremity venous Doppler and ultrasound exam. Dictated by: Dictated on workstation # [id number]
== END ==
LOC: RAD 10:45
PROVIDERS: ATTEND Family Medicine
DX: R60.0 Localized edema (principal); Z86.73 Personal history of transient ischemic attack (TIA), and cerebral infarction without residual deficits

== ENCOUNTER 2021-08-15 04:11 | Emergency (ER) | payer OTHER ==
[~2021-08-15] VITALS: Ht 165.1 cm; Wt 135.3 kg
--- NOTE | 2021-08-15 04:35 | ED General ---
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 She feels short of breath, has some right-sided chest discomfort. She has right-sided leg pain and swelling, pain behind her right knee, calf pain. Symptoms have been coming on for at least the last 2 weeks. She states she got scared this morning when she got up to go to the bathroom and felt generally weak and that she did not think that her right leg would hold her. She has no history of pulmonary embolism or DVT. She states she has been very immobile over the last several weeks laying in her recliner chair a lot. She denies fevers or chills. She has had a nonproductive cough. Denies hemoptysis. No family history of clotting disorders. She does not smoke. No recent car trips. She is quite tachycardic in the 115 range and her heart rate. Her oxygen saturations are 94 to 95% on room air. Blood pressure is good. No burning with urination, diarrhea. No abdominal cramping. All other review of systems reviewed and negative except as stated. Timing/Duration: Other (2 weeks) Associated Systoms: Chest Pain (BARB GAMING MD) Allergies and Home Medications Allergies Coded Allergies: amoxicillin (Unverified Allergy, Mild, 07/06/09) Patient Home Medication List Home Medication List Reviewed: Yes (KIRK ARRIOLA MD) Alprazolam (Xanax) 0.25 Mg Tablet, 1-2 TAB PO BID PRN for ANXIETY Prescribed by: MELODIE DOWNING on 05/06/21 1417 Benzonatate (Tessalon Perle) 100 Mg Capsule, 100 MG PO Q6H PRN for COUGH Prescribed by: KAITLIN ROMERO on 05/13/19 0035 Docusate Sodium (Colace) 100 Mg Capsule, 100 MG PO BID Prescribed by: HIMA ROCA on 08/19/18 1025 Hydrocodone Bit/Acetaminophen (Lortab 5 Mg Tablet) 1 Tab Tab, 1-2 TAB PO Q6H PRN for PAIN-MODERATE Prescribed by: HIMA ROCA on 08/19/18 1025 Hydroxyzine HCl (Hydroxyzine HCl) 25 Mg Tablet, 25 MG PO Q8H Prescribed by: SIDNEY REYNOSO on 08/22/19 1254 Review of Systems Review of Systems Constitutional: no symptoms reported EENTM: no symptoms reported Respiratory: no symptoms reported Cardiovascular: no symptoms reported Gastrointestinal: no symptoms reported Musculoskeletal: muscle pain Skin: no symptoms reported Psychiatric/Neurological: No Symptoms Reported Hematologic/Lymphatic: No Symptoms Reported Immunological/Allergic: no symptoms reported (KIRK ARRIOLA MD) All Other Systems Reviewed Negative Unless Noted: Yes (KIRK ARRIOLA MD) Past Wxlpgmw-Toaeph-Aqyint Hx Immunizations Up To Date Tetanus Booster (TDap): Unknown First/Initial COVID19 Vaccinat: 2020 Second COVID19 Vaccination Calvin: JAN 2021 (BARB GAMING MD) Seasonal Allergies Seasonal Allergies: No (BARB GAMING MD) Past Medical History Surgery/Hospitalization HX: TURNERS SYNDROME Surgeries: Yes (EYE SURGERY x2, EAR TUBES X6, knee scope, HERNIA REPAIR) Adenoidectomy, Gallbladder, Orthopedic, Tonsillectomy Respiratory: No Cardiac: No Neurological: No Genitourinary: No Gastrointestinal: Yes Abdominal Hernia, Polyps, Irritable Bowel Musculoskeletal: No Endocrine: Yes (Morbid obesity) HEENT: No Cancer: No Psychosocial: No Integumentary: No Blood Disorders: No (BARB GAMING MD) Physical Exam Vital Signs Vital Signs - First Documented (KIRK ARRIOLA MD) Vital Signs Capillary Refill : (BARB GAMING MD) Height, Weight, BMI Height: 5'5.00" Weight: 269lbs. 0.0oz. 122.867815pd; 47.00 BMI Method:Stated (BARB GAMING MD) General Appearance: No Apparent Distress, WD/WN Eyes: Bilateral Eye Normal Inspection HEENT: PERRL/EOMI, Normal ENT Inspection, Pharynx Normal Neck: Full Range of Motion, Normal Inspection, Non Tender, Supple Respiratory: Chest Non Tender, Lungs Clear, Normal Breath Sounds, No Accessory Muscle Use, No Respiratory Distress Cardiovascular: Regular Rate, Rhythm, No Edema, Normal Peripheral Pulses Gastrointestinal: Normal Bowel Sounds, Non Tender, Soft; No Distended, No Guarding Back: Normal Inspection, No CVA Tenderness, No Vertebral Tenderness Extremity: Normal Capillary Refill, Normal Inspection, Normal Range of Motion, Non Tender, No Calf Tenderness, No Pedal Edema Neurologic/Psychiatric: Alert, No Motor/Sensory Deficits, Normal Mood/Affect Skin: Normal Color, Warm/Dry Lymphatic: No Adenopathy (KIRK ARRIOLA MD) Progress/Results/Core Measures Suspected Sepsis SIRS Temperature: Pulse: Respiratory Rate: Laboratory Tests 08/15/21 03:41: White Blood Count 7.3 Blood Pressure / Mean: Laboratory Tests 08/15/21 03:41: Creatinine 0.73, Platelet Count 273 (BARB GAMING MD) Results/Orders Lab Results Laboratory Tests Test 08/15/21 03:41 08/15/21 06:30 Range/Units White Blood Count 7.3 4.3-11.0 10^3/uL Red Blood Count 5.31 H 3.80-5.11 10^6/uL Hemoglobin 16.6 H 11.5-16.0 g/dL Hematocrit 47 35-52 % Mean Corpuscular Volume 88 80-99 fL Mean Corpuscular Hemoglobin 31 25-34 pg Mean Corpuscular Hemoglobin Concent 35 32-36 g/dL Red Cell Distribution Width 11.7 10.0-14.5 % Platelet Count 273 130-400 10^3/uL Mean Platelet Volume 10.6 9.0-12.2 fL Immature Granulocyte % (Auto) 0 % Neutrophils (%) (Auto) 44 42-75 % Lymphocytes (%) (Auto) 43 12-44 % Monocytes (%) (Auto) 10 0-12 % Eosinophils (%) (Auto) 3 0-10 % Basophils (%) (Auto) 1 0-10 % Neutrophils # (Auto) 3.2 1.8-7.8 10^3/uL Lymphocytes # (Auto) 3.1 1.0-4.0 10^3/uL Monocytes # (Auto) 0.7 0.0-1.0 10^3/uL Eosinophils # (Auto) 0.2 0.0-0.3 10^3/uL Basophils # (Auto) 0.1 0.0-0.1 10^3/uL Immature Granulocyte # (Auto) 0.0 0.0-0.1 10^3/uL D-Dimer 0.81 H 0.00-0.49 UG/ML Sodium Level 140 135-145 MMOL/L Potassium Level 3.7 3.6-5.0 MMOL/L Chloride Level 103 98-107 MMOL/L Carbon Dioxide Level 21 21-32 MMOL/L Anion Gap 16 H 5-14 MMOL/L Blood Urea Nitrogen 12 7-18 MG/DL Creatinine 0.73 0.60-1.30 MG/DL Estimat Glomerular Filtration Rate 103 BUN/Creatinine Ratio 16 Glucose Level 134 H 70-105 MG/DL Calcium Level 9.9 8.5-10.1 MG/DL Troponin I < 0.028 <0.028 NG/ML (KIRK ARRIOLA MD) Medications Given in ED Current Medications Medications Dose Ordered Sig/Lj Route Start Time Stop Time Status Last Admin Dose Admin Iohexol 100 ml ONCE ONCE IV 08/15/21 05:30 08/15/21 05:31 DC 08/15/21 05:23 88 ML Ketorolac Tromethamine 15 mg ONCE ONCE IVP 08/15/21 06:30 08/15/21 06:31 DC 08/15/21 06:35 15 MG Sodium Chloride 100 ml ONCE ONCE IV 08/15/21 05:30 08/15/21 05:31 DC 08/15/21 05:23 100 ML (KIRK ARRIOLA MD) Vital Signs/I&O 08/15/21 08/15/21 08/15/21 04:34 04:34 07:45 Temp 37.0 Pulse 104 86 Resp 20 16 B/P (MAP) 155/113 (127) 128/85 Pulse Ox 97 97 O2 Delivery Room Air Room Air Room Air (KIRK ARRIOLA MD) Vital Signs/I&O Capillary Refill : (BARB GAMING MD) Progress Note : Time: 06:29 Progress Note Patient up to the bathroom. HR is down to 89. She hurts every time she moves. Will give her some IVF and toradol. Am adding troponin level - as I did not originally order it - however, Pavon Syndrome predisposes her to early CAD. U/S is pending for RLE DVT. Care being passed to Dr Arriola at shift change. (BARB GAMING MD) Progress Note : Progress Note Ultrasound negative and troponin followed up and were negative. Patient better after pain medicine. Discharged home in stable condition with strict return precautions. (KIRK ARRIOLA MD) ECG Initial ECG Impression Date: August 15, 2021 Initial ECG Impression Time: 04:32 Initial ECG Rate: 106 Initial ECG Rhythm: Normal Sinus Initial ECG Impression: Nonspecific Changes (BARB GAMING MD) Departure Impression Primary Impression: Right leg pain Disposition: 01 HOME, SELF-CARE Condition: Stable Departure-Patient Inst. Decision time for Depature: 07:33 (KIRK ARRIOLA MD) Referrals: ROB GONZALEZ MD (PCP/Family) Primary Care Physician Patient Instructions: Muscle and Bone Pain (DC) Add. Discharge Instructions: All of your work-up is normal including the scan of your upper body and the ultrasound of your leg. Specifically there is no sign of any blood clot. You do have what appears to be old breaks in your back which probably happened a jayshree g time ago and there is nothing to do for this unless you are having back pain. If you are having back pain and I would follow-up with a bone doctor. Take ibuprofen and/or Tylenol as needed for pain. Follow-up with your regular doctor if things are not improving. Work/School Note: Work Release Form Date Seen in the Emergency Department: August 15, 2021 Return to Work: August 16, 2021 Restrictions: No Restrictions BARB GAMING MD August 15, 2021 04:35 KIRK ARRIOLA MD August 15, 2021 07:34
[2021-08-15 04:38] LABS: BASOPHILS # (AUTO) 0.1 10^3/uL (0.0-0.1); BASOPHILS % (AUTO) 1 % (0-10); EOSINOPHILS # (AUTO) 0.2 10^3/uL (0.0-0.3); EOSINOPHILS % (AUTO) 3 % (0-10); HEMATOCRIT 47 % (35-52); HEMOGLOBIN 16.6 g/dL (11.5-16.0); LYMPHOCYTES # (AUTO) 3.1 10^3/uL (1.0-4.0); LYMPHOCYTES % (AUTO) 43 % (12-44); MEAN CORPUSCULAR HEMOGLOBIN 31 pg (25-34); MEAN CORPUSCULAR HGB CONC 35 g/dL (32-36); MEAN CORPUSCULAR VOLUME 88 fL (80-99); MEAN PLATELET VOLUME 10.6 fL (9.0-12.2); MONOCYTES # (AUTO) 0.7 10^3/uL (0.0-1.0); MONOCYTES % (AUTO) 10 % (0-12); NEUTROPHILS # (AUTO) 3.2 10^3/uL (1.8-7.8); NEUTROPHILS % (AUTO) 44 % (42-75); PLATELET COUNT 273 10^3/uL (130-400); WHITE BLOOD COUNT 7.3 10^3/uL (4.3-11.0)
[2021-08-15 04:50] LABS: POTASSIUM 3.7 MMOL/L (3.6-5.0)
[2021-08-15 04:51] LABS: CALCIUM 9.9 MG/DL (8.5-10.1)
[2021-08-15 04:55] LABS: CREATININE SERUM 0.73 MG/DL (0.60-1.30)
[2021-08-15] MEDS ORDERED: HOLD METFORMIN - RECEIVED CONTRAST 20 ML VIAL IV SCH (05:30)
[2021-08-15] MEDS ORDERED: IOHEXOL 350 MG/ML 100 ML (OMNIPAQUE 350) VIAL IV ONE (05:30)
[2021-08-15] MEDS ORDERED: NS 100 ML (IVPB) BAG IV ONE (05:30)
--- NOTE | 2021-08-15 06:07 | Diagnostic Imaging Report ---
INDICATION: Chest pain TECHNIQUE: Multiple contiguous axial images were obtained through the chest after uneventful bolus administration of intravenous contrast. 3D reconstructed CTA MIP acquisitions were also performed. Auto Exposure Controls were utilized during the CT exam to meet ALARA standards for radiation dose reduction. There is no prior CTA chest for comparison. The pulmonary parenchymal vessels appear well opacified with no CT evidence of pulmonary emboli. The thoracic aorta shows no evidence of aneurysm or dissection. There are no enlarged mediastinal or hilar nodes. There is no pleural or pericardial fluid. There are no enlarged axillary nodes or chest wall lesions. Visualized portions of the upper abdomen appear unremarkable. Lung parenchymal windows show no pulmonary nodules, except for calcified granuloma in the right apex. There is no focal infiltrate. There are compression deformities in the lower thoracic spine which appear chronic. IMPRESSION: Essentially negative CTA chest. No evidence of pulmonary emboli or acute aortic pathology. No focal infiltrate. Chronic compression deformities in lower thoracic spine. Dictated by: Dictated on workstation # [id number]
[2021-08-15] MEDS ORDERED: KETOROLAC 30 MG/ML VIAL IVP ONE (06:30)
[2021-08-15] MEDS ORDERED: NS IV 1000 ML 1,000 ML IV SCH (06:30)
--- NOTE | 2021-08-15 07:30 | Diagnostic Imaging Report ---
Indication: Shortness of breath and palpitations and chest discomfort. Frontal chest obtained at 0451 a.m. compared to 08/22/2019. There is cardiomegaly. Mediastinal silhouette is unremarkable. The lungs are clear. There is no pneumothorax or pleural fluid. IMPRESSION: Cardiomegaly with no acute process in the chest. Dictated by: Dictated on workstation # [id number]
[2021-08-15 07:45] VITALS: BP 128/85
--- NOTE | 2021-08-15 08:06 | Diagnostic Imaging Report ---
INDICATION: Right leg pain. Right leg venous Doppler study was performed in the routine fashion with color flow Doppler and waveform analysis. FINDINGS: The right common femoral vein, superficial femoral vein, popliteal vein and visualized portion of the tibial veins show normal compressibility and venous flow patterns. There is normal augmentation. IMPRESSION: No evidence of deep vein thrombosis of the major veins of the right leg. Dictated by: Dictated on workstation # [id number]
== END 2021-08-15 07:45 | disposition home or self-care (01) ==
LOC: EDUNIT# 04:11 → ER 04:14
DX: M79.661 Pain in right lower leg (principal); E66.01 Morbid (severe) obesity due to excess calories; Z28.311 Partially vaccinated for COVID-19
CPT/HCPCS: 36415; 71045; 71275; 80048; 84484; 85025; 85379; 93005

== ENCOUNTER → 2021-11-21 | Outpatient (CLI) | payer OTHER ==
--- NOTE | 2021-11-21 13:00 | Diagnostic Imaging Report ---
INDICATION: Right leg pain. TIME OF EXAM: 10:26 AM AP and lateral views right tibia and fibula were obtained. Alignment at the knee and ankle is normal. The tibia and fibula appear intact. No fracture seen. Severe tricompartmental degenerative changes at the knee are noted. IMPRESSION: Degenerative changes right knee. No acute bony abnormality of the right tibia or fibula is seen. Dictated by: Dictated on workstation # [id number]
--- NOTE | 2021-11-21 13:30 | Diagnostic Imaging Report ---
INDICATION: Right foot pain. TIME OF EXAM: 10:24 AM FINDINGS: 3 views of the right foot were obtained. The metatarsals appear intact. Phalanges are intact. Midfoot and hindfoot are unremarkable. No fractures are seen. IMPRESSION: No acute bony abnormalities detected. Dictated by: Dictated on workstation # [id number]
== END ==
LOC: RAD 09:57
PROVIDERS: ATTEND Family Medicine
DX: M17.11 Unilateral primary osteoarthritis, right knee (principal)
CPT/HCPCS: 73590; 73630

== ENCOUNTER 2022-02-28 10:28 | Emergency (ER) | payer OTHER ==
[~2022-02-28] VITALS: Ht 165.1 cm; Wt 118.4 kg
--- NOTE | 2022-02-28 12:46 | Diagnostic Imaging Report ---
HISTORY: Pain and swelling in the right ankle. TECHNIQUE: 3 views of the right ankle COMPARISON: Tibia and fibula radiographs from 11/21/2021 FINDINGS: No acute fracture is seen in the right ankle. Alignment appears normal. There are mild degenerative changes at the ankle joint. A small os trigonum is noted. There is a small Achilles tendon enthesophyte. There is moderate soft tissue swelling about the right ankle. IMPRESSION: 1. Soft tissue swelling about the right ankle with no acute osseous abnormality seen. Dictated by: Dictated on workstation # [id number]
[2022-02-28] MEDS ORDERED: KETOROLAC 30 MG/ML VIAL IM ONE (14:00)
[2022-02-28] MEDS ORDERED: IBUP-1773 PO (14:10)
--- NOTE | 2022-02-28 14:10 | ED Lower Extremity ---
General Chief Complaint: Lower Extremity Stated Complaint: RT ANKLE PAIN Nursing Triage Note: PT TO FT 1 W C/O RIGHT ANKLE PAIN SX LAST NIGHT, DENIES INJURY. A&OX4. Source: patient Exam Limitations: no limitations (HERBERT MURCIA APRN) History of Present Illness Date Seen by Provider: Feb 28, 2022 Time Seen by Provider: 12:00 Initial Comments Patient is a 46-year-old female who presents to the emergency department with right ankle pain and swelling that began last night. Patient denies any specific injury preceding the symptoms. Denies any other pain or injury at this time. Has not taken anything today for the symptoms. (HERBERT MURCIA APRN) Allergies and Home Medications Allergies Coded Allergies: amoxicillin (Unverified Allergy, Mild, 07/06/09) Patient Home Medication List Home Medication List Reviewed: Yes (HERBERT MURCIA APRN) Alprazolam (Xanax) 0.25 Mg Tablet, 1-2 TAB PO BID PRN for ANXIETY Prescribed by: MELODIE DOWNING on 05/06/21 1417 Benzonatate (Tessalon Perle) 100 Mg Capsule, 100 MG PO Q6H PRN for COUGH Prescribed by: KAITLIN ROMERO on 05/13/19 0035 Docusate Sodium (Colace) 100 Mg Capsule, 100 MG PO BID Prescribed by: HIMA ROCA on 08/19/18 1025 Hydrocodone Bit/Acetaminophen (Lortab 5 Mg Tablet) 1 Tab Tab, 1-2 TAB PO Q6H PRN for PAIN-MODERATE Prescribed by: HIMA ROCA on 08/19/18 1025 Hydroxyzine HCl (Hydroxyzine HCl) 25 Mg Tablet, 25 MG PO Q8H Prescribed by: SIDNEY REYNOSO on 08/22/19 1254 Ibuprofen (Ibuprofen) 600 Mg Tablet, 600 MG PO Q6H PRN for PAIN-MILD Prescribed by: Herbert Murcia on 02/28/22 1410 Review of Systems Constitutional: no symptoms reported Respiratory: no symptoms reported Cardiovascular: no symptoms reported Gastrointestinal: no symptoms reported Genitourinary: no symptoms reported Musculoskeletal: joint pain, joint swelling (HERBERT MURCIA APRN) Past Qqomumv-Avlekr-Ffpifx Hx Patient Social History Tobacco Use?: No Use of E-Cig and/or Vaping dev: No Substance use?: No Alcohol Use?: No (HERBERT MURCIA APRN) Immunizations Up To Date Tetanus Booster (TDap): Unknown First/Initial COVID19 Vaccinat: 2020 Second COVID19 Vaccination Calvin: JAN 2021 Third COVID19 Vaccination Date: NONE COVID19 Vaccine Syrup Mixer Assistant: BRONSON (HERBERT MURCIA APRN) Seasonal Allergies Seasonal Allergies: No (HERBERT MURCIA APRN) Past Medical History Surgery/Hospitalization HX: TURNERS SYNDROME Surgeries: Yes (EYE SURGERY x2, EAR TUBES X6, knee scope, HERNIA REPAIR) Adenoidectomy, Gallbladder, Orthopedic, Tonsillectomy Respiratory: No Cardiac: No Neurological: No Genitourinary: No Gastrointestinal: Yes Abdominal Hernia, Polyps, Irritable Bowel Musculoskeletal: No Endocrine: Yes (Morbid obesity) HEENT: No Cancer: No Psychosocial: No Integumentary: No Blood Disorders: No (HERBERT MURCIA APRN) Physical Exam Vital Signs Vital Signs - First Documented 02/28/22 11:00 Temp 36.6 Pulse 70 Resp 20 B/P (MAP) 122/84 (97) Pulse Ox 98 O2 Delivery Room Air (CAITLYN MUNGUIA MD) Vital Signs Capillary Refill : Less Than 3 Seconds (HERBERT MURCIA APRN) Height, Weight, BMI Height: 5'5.00" Weight: 269lbs. 0.0oz. 122.472493td; 43.00 BMI Method:Stated General Appearance: WD/WN, no apparent distress HEENT: PERRL/EOMI Neck: non-tender, full range of motion Cardiovascular: regular rate, rhythm Respiratory: chest non-tender, lungs clear, normal breath sounds, no respiratory distress Ankles: right ankle pain, right ankle soft tissue tenderness, right ankle swelling Neurologic/Psychiatric: no motor/sensory deficits, alert, normal mood/affect, oriented x 3 Skin: normal color, warm/dry (HERBERT MURCIA APRN) Progress/Results/Core Measures Results/Orders Vital Signs/I&O 02/28/22 02/28/22 11:00 14:16 Temp 36.6 36.6 Pulse 70 70 Resp 20 20 B/P (MAP) 122/84 (97) 122/84 Pulse Ox 98 98 O2 Delivery Room Air Room Air (CAITLYN MUNGUIA MD) Blood Pressure Mean: 97 Progress Progress Note : Progress Note Patient is nontoxic and well-hydrated on exam. Swelling noted to the right ankle especially on the lateral aspect. Patient has intact neurovascular function of the distal right lower extremity. X-rays of the right ankle are acutely negative. Discussed supportive care and anticipatory guidance. Follow- up with PCP/Ortho if no improvement in 5 to 7 days. Return precautions for urgent symptomology discussed. Patient verbalized understanding. (HERBERT MURCIA APRN) Departure Impression Primary Impression: Right ankle pain Qualified Codes: M25.571 - Pain in right ankle and joints of right foot Disposition: HOME, SELF-CARE Condition: Stable Departure-Patient Inst. Decision time for Depature: 14:05 (HERBERT MURCIA APRN) Referrals: ROB GONZALEZ MD (PCP) Primary Care Physician Patient Instructions: Acute Pain, Adult (DC) Scripts Ibuprofen (Ibuprofen) 600 Mg Tablet 600 MG PO Q6H PRN for PAIN-MILD, #20 TAB 0 Refills Prov: HERBERT MURCIA APRN 02/28/22 ATTENDING PHYSICIAN NOTE: I was physically present as attending physician in the emergency department during the care of this patient, but I was not directly involved in the decision making or delivery of care for this patient. (CAITLYN MUNGUIA MD) HERBERT MURCIA APRN Feb 28, 2022 14:10 CAITLYN MUNGUIA MD Mar 01, 2022 20:32
[2022-02-28 14:16] VITALS: BP 122/84
== END 2022-02-28 14:16 | disposition home or self-care (01) ==
LOC: EDUNIT# 10:28 → ER 10:30
DX: M25.571 Pain in right ankle and joints of right foot (principal); M25.471 Effusion, right ankle; E66.01 Morbid (severe) obesity due to excess calories; Z68.41 Body mass index [BMI] 40.0-44.9, adult
CPT/HCPCS: 73610

== ENCOUNTER → 2022-07-09 | Outpatient (CLI) | payer OTHER ==
[~2022-07-09] MED LIST changes: +CATHETER FLUSH 10 ML SYR IVP PRN; +IBUP-1773 PO; +REGADENOSON 0.4 MG/5 ML SYR (LEXISCAN) IV ONE
[2022-07-09 13:17] VITALS: BP 142/100
--- NOTE | 2022-07-10 07:58 | Cardiology Stress Test Report ---
Stress Test Report Date of Procedure/Referring: Date of Procedure: Jul 09, 2022 PCP Rob Gonzalez MD Admitting Physician Admitting Physician: Attending Physician: Warren Hernandez MD Baseline Heart Rate: 81 Baseline Blood Pressure: Blood Pressure Systolic: 142 Blood Pressure Diastolic: 100 Baseline Vitals Vital Signs Date Time Temp Pulse Resp B/P (MAP) Pulse Ox O2 Delivery O2 Flow Rate FiO2 07/09/22 13:17 75 142/100 (114) Baseline EKG: Baseline EKG: RBBB Summary After explaining the procedure to the patient, she signed a consent and then brought to the stress nuclear laboratory. Patient received 0.4 mg Lexiscan for stress test, ECG, heart rate and blood pressure were monitored continuously. Resting and stress dose of radio tracer were injected, imaging was acquired and reviewed in short axis, horizontal long axis and vertical long axis views. TID: 1.04 SSS: 4 SDS: 4 EF: 57 Patient tolerated Lexiscan well Baseline right bundle branch block persisted during test Diaphragmatic attenuation with mild decrease uptake involving the mid to apical inferior wall with mild reversibility, most probably secondary to diaphragmatic attenuation, overall there is no significant ischemia or infarction on SPECT images Normal left ventricular size, ejection fraction 57% Copy Copies To 1: ROB GONZALEZ MD, BASHAR J MD Jul 10, 2022 07:58
== END ==
LOC: CARD 10:28
PROVIDERS: ATTEND Internal Medicine Cardiovascular Disease
DX: I25.10 Atherosclerotic heart disease of native coronary artery without angina pectoris (principal); I11.9 Hypertensive heart disease without heart failure
CPT/HCPCS: 78452; 93017; A9502; C8929; 93306

== ENCOUNTER → 2022-09-02 | Outpatient (CLI) | payer OTHER ==
[~2022-09-02] MED LIST changes: -CATHETER FLUSH 10 ML SYR IVP PRN; -REGADENOSON 0.4 MG/5 ML SYR (LEXISCAN) IV ONE
--- NOTE | 2022-09-02 13:23 | Diagnostic Imaging Report ---
EXAMINATION: Cervical spine radiographs, 2 views. COMPARISON: CT head and cervical spine May 06, 2021. HISTORY: 47-year-old female, followup cervical fusion. FINDINGS: There is anterior spinal fusion hardware spanning C4 through C7. The hardware appears intact. There is disc spacer material. The alignment of the cervical spine is unremarkable. The nonoperative disc heights appear well-preserved. There is no identified acute fracture. IMPRESSION: Intact anterior cervical spinal fusion hardware spanning C4 through C7 without identified complication. Dictated by: Dictated on workstation # [id number]
== END ==
LOC: RAD 12:21
PROVIDERS: ATTEND Physician Assistant
DX: Z98.1 Arthrodesis status (principal)
CPT/HCPCS: 72040

== ENCOUNTER → 2022-10-10 | Outpatient (CLI) | payer OTHER ==
--- NOTE | 2022-10-10 19:35 | Diagnostic Imaging Report ---
INDICATION: Postop. COMPARISON: Exam compared to 09/02/2022. FINDINGS: C4 through C7 ACDF has been performed. Alignment across, above, and below the fusion mass is anatomic. Fusion appears solid. No complication. No acute pathology. IMPRESSION: Solid lower cervical multilevel ACDF, aligned anatomically. Dictated by: Dictated on workstation # [id number]
== END ==
LOC: RAD 15:40
PROVIDERS: ATTEND Nurse Practitioner
DX: Z48.89 Encounter for other specified surgical aftercare (principal)
CPT/HCPCS: 72040

== ENCOUNTER → 2023-01-16 | Outpatient (CLI) | payer OTHER ==
--- NOTE | 2023-01-16 17:11 | Diagnostic Imaging Report ---
INDICATION: Cervical spinal surgical aftercare. Flexion, neutral and extension views of cervical spine are obtained in the lateral projection with single AP image. Comparison is made to study of 10/10/2022. There is stable overall appearance of discectomies and anterior fusion from C4 through C7. There is no evidence of hardware complication. No abnormal motion is seen with flexion and extension. Prevertebral soft tissues are unremarkable. IMPRESSION: Stable postoperative findings without acute abnormality or complication. Dictated by: Dictated on workstation # [id number]
== END ==
LOC: RAD 10:25
PROVIDERS: ATTEND Nurse Practitioner
DX: Z48.89 Encounter for other specified surgical aftercare (principal); Z98.890 Other specified postprocedural states
CPT/HCPCS: 72050